=== PATIENT | female | born 1955 | race Caucasian/White ===

== ENCOUNTER 2017-07-02 16:08 | Emergency (ER) | payer OTHER ==
[2017-07-02 16:22] VITALS: BP 129/78; PULSE 74; TEMP 97.3; BMI 26.4
--- NOTE | 2017-07-02 16:25 | PDOC ---
Rapid Medical Evaluation Time Seen by Provider: 07/02/17 16:16 Medical Evaluation: Allergies Allergy/AdvReac Type Severity Reaction Status Date / Time No Known Drug Allergies Allergy Verified 02/06/15 11:50 07/02/17 16:16 The patient presents with a chief complaint of: fell getting out of a car landing on the left knee causing an abrasion and chin/lip. she is c/o minor pain and minor "bleeding" to knee, chin, lip however bleeding is controlled wkith very minor skin abrasion . she is with hx of MR and lives with an aid in a nursing home. I have performed a brief in-person evaluation of this patient; Pertinent physical exam findings: right knee abrasion ambulatory, in no respiratory distress I have ordered the following: none, evaluation only. The patient will proceed to the ED for further evaluation.
--- NOTE | 2017-07-02 16:30 | PDOC ---
History of Present Illness - General Chief Complaint: Injury Stated Complaint: FALL/INJURY Time Seen by Provider: 07/02/17 16:16 History Source: Patient Exam Limitations: Clinical Condition - History of Present Illness Initial Comments: 07/02/17 16:25 Pt had falling getting out of a car falling on her left knee, chin and upper lip without bleeding noted. She has full ROM, no impeded movement due to pain. she is with MR/Downs and limited on subjective assessment. Aid present pt was not witnessed to her fall and came in for evaluation. Occurred: reports: just prior to arrival Severity: reports: mild Past History - Past Medical History Allergies/Adverse Reactions: Allergies Allergy/AdvReac Type Severity Reaction Status Date / Time No Known Drug Allergies Allergy Verified 07/02/17 16:18 Home Medications: Ambulatory Orders Calcium Carbonate/Vitamin D3 [Calcium 600-Vit D3 200 Tablet] 1 each PO BID #0 tablet 11/19/11 Cholecalciferol (Vitamin D3) [Vitamin D] 2,000 unit PO DAILY #0 tablet 11/19/11 Levothyroxine [Synthroid -] 75 mcg PO DAILY #0 tablet 11/19/11 MetroNIDAZOLE [Metronidazole TOP GEL] 45 gm TP DAILY #0 gel 11/19/11 Oxycodone HCl/Acetaminophen [Percocet 5-325 mg Tablet] 1 combo PO Q4H PRN #0 tablet 11/19/11 Polyethylene Glycol 3350 [Miralax] 1 gm PO DAILY #0 powd.pack 11/19/11 Unobtainable 02/06/15 Anemia: No Asthma: No Cancer: No Cardiac Disorders: No CVA: No COPD: No CHF: No Diabetes: No GI Disorders: Yes (IBS) Hypercholesterolemia: No Liver Disease: No Seizures: No Thyroid Disease: Yes - Immunization History Immunization Up to Date: Yes - Suicide/Smoking/Psychosocial Hx Smoking Status: No Smoking History: Never smoked Have you smoked in the past 12 months: No Number of Cigarettes Smoked Daily: 0 Information on smoking cessation initiated: No Hx Alcohol Use: No Drug/Substance Use Hx: No Substance Use Type: None Review of Systems - Review of Systems Able to Perform ROS?: No *Physical Exam - Vital Signs Last Vital Signs Temp Pulse Resp BP Pulse Ox 97.3 F L 74 15 129/78 100 07/02/17 16:18 07/02/17 16:18 07/02/17 16:18 07/02/17 16:18 07/02/17 16:18 - Physical Exam Respiratory/Chest: positive: Lungs Clear Cardiovascular: positive: Regular Rate Gastrointestinal/Abdominal: positive: Flat, Soft Musculoskeletal: positive: Normal Inspection Extremity: positive: Normal Capillary Refill, Normal Inspection, Normal Range of Motion, Other (abrasion to chin, lip, left knee) Integumentary: positive: Normal Color, Dry, Warm Neurologic: positive: Alert, Normal Mood/Affect, Normal Response Medical Decision Making - Medical Decision Making 07/02/17 16:28 Abrasions very minor, areas cleaned and bacitracin applied. No loose teeth noted, no oral injuries noted. Full ROM last tetanus shot according to [facility] 09/30 Areas cleaned and bacitracin applied. *DC/Admit/Observation/Transfer Diagnosis at time of Disposition: Fall Qualifiers: Encounter type: initial encounter Qualified Code(s): W19.XXXA - Unspecified fall, initial encounter - Discharge Dispostion Disposition: HOME Condition at time of disposition: Good Admit: No - Referrals - Patient Instructions Printed Discharge Instructions: DI for Abrasion Additional Instructions: Discharge instruction Keep wounds clean and dry and apply bacitracin to area 2x day. Any signs of infection, return to ED. - Post Discharge Activity
== END 2017-07-02 16:39 | disposition home or self-care (01) ==
LOC: JERFT 16:08
DX: S80.212A Abrasion, left knee, initial encounter (principal); W18.39XA Other fall on same level, initial encounter; Y93.89 Activity, other specified; Y92.9 Unspecified place or not applicable; Q90.9 Down syndrome, unspecified; K58.9 Irritable bowel syndrome, unspecified; E07.9 Disorder of thyroid, unspecified
CPT/HCPCS: 99281-25

== ENCOUNTER 2019-05-13 14:02 | Inpatient (IN) | payer OTHER ==
[2019-05-13 14:20] VITALS: BMI 22.4
[2019-05-13] MEDS ORDERED: LACTATED RINGERS SOLUTION 1000 ML INFUS.BAG IV ONE ×2 (14:26→15:30)
--- NOTE | 2019-05-13 14:27 | PDOC ---
History of Present Illness - General Chief Complaint: Diarrhea Stated Complaint: HYPOTENSIVE Time Seen by Provider: 05/13/19 14:25 History Source: Care Provider Exam Limitations: Clinical Condition - History of Present Illness Initial Comments: 05/13/19 14:26\ HPI 63 YOF with h/o Down's syndrome BIB [facility]-way aid presenting with multiple episodes of diarrhea, decreased appetite/PO intake and fever x 5 days, Tmax 102 today. she was in the bathroom all morning and did not come out due to voluminous diarrhea. went to urgent care [facility], where strep test done, (positive for strep A), and due to hypotension, referred to the ED for further evaluation. no other known sick contacts at [facility] no recent abx use. otherwise has been acting appropriately per aid at bedside. Allergies: None Past Medical History: Down's syndrome PSH: unknown Social history: Lives at [facility]-way. Meds: as documented in EMR Review of systems limited 2/2 clinical condition/Down's syndrome 05/13/19 18:20 Past History - Past Medical History Allergies/Adverse Reactions: Allergies Allergy/AdvReac Type Severity Reaction Status Date / Time No Known Drug Allergies Allergy Verified 07/02/17 16:18 Home Medications: Ambulatory Orders Calcium Carbonate/Vitamin D3 [Calcium 600-Vit D3 200 Tablet] 1 each PO BID #0 tablet 11/19/11 Cholecalciferol (Vitamin D3) [Vitamin D] 2,000 unit PO DAILY #0 tablet 11/19/11 Levothyroxine [Synthroid -] 75 mcg PO DAILY #0 tablet 11/19/11 Polyethylene Glycol 3350 [Miralax] 1 gm PO DAILY #0 powd.pack 11/19/11 Anemia: No Asthma: No Cancer: No Cardiac Disorders: No CVA: No COPD: No CHF: No Diabetes: No GI Disorders: Yes (IBS) Hypercholesterolemia: No Liver Disease: No Seizures: No Thyroid Disease: Yes - Immunization History Immunization Up to Date: Yes - Psycho Social/Smoking Cessation Hx Smoking Status: No Smoking History: Never smoked Have you smoked in the past 12 months: No Number of Cigarettes Smoked Daily: 0 Information on smoking cessation initiated: No Hx Alcohol Use: No Drug/Substance Use Hx: No Substance Use Type: None Review of Systems - Review of Systems Able to Perform ROS?: No (Down's syndrome) *Physical Exam - Vital Signs Last Vital Signs Temp Pulse Resp BP Pulse Ox 98.5 F 106 H 20 88/53 L 96 05/13/19 14:19 05/13/19 14:19 05/13/19 14:19 05/13/19 14:19 05/13/19 14:19 - Physical Exam 05/16/19 09:38 General: NAD. nonverbal HEENT: NCAT, PERRL, EOMI, clear conjunctiva, anicteric, dry mucus membranes, clear oropharynx, no oral lesions.. Neck: neck supple, FROM Resp: CTAB, normal and even respirations, no respiratory distress CVS: +tachycardic, no murmurs, 2+ peripheral pulses throughout, no peripheral edema Abdomen: soft, +diffusely tender. no rebound or guarding. no CVAT. Back: nontender, normal inspection and ROM MSK: no edema, KANG x4, ROM intact. No clubbing or cyanosis. normal bulk and tone. Neuro: alert, nonverbal. Psych: easily agitated. Skin: warm and well perfused, cap refill <2 sec, normal color no rash or lesions ED Treatment Course - LABORATORY CBC & Chemistry Diagram: 05/16/19 07:50 05/16/19 07:50 Medical Decision Making - Medical Decision Making 05/13/19 14:26 Vital Signs Temp Pulse Resp BP Pulse Ox 98.5 F 106 H 20 88/53 L 96 05/13/19 14:19 05/13/19 14:19 05/13/19 14:19 05/13/19 14:19 05/13/19 14:19 VS no fever, +hypotensive and tachycardia likely from infection/dehydration. DDx abdominal pain: Renal colic, biliary colic, metabolic/electrolyte derangements. GERD, PUD, esophageal spasm, pancreatitis, hepatitis, constipation , colitis, gastroenteritis, cholecystitis, UTI, pyelonephritis, ileus, SBO, medication side effect, hernia, appendicitis, diverticulitis, mesenteric ischemia. msk strain, mesenteric adenitis, psoas abscess. no e/o GIB. no risk factors to suggest C diff colitis, as pt not received recent abx will send stool cultures, could be community acquired colitis, eval for bacterial infection Patient required Haldol for her agitation,, 2 L of LR hydration, low-dose Versed to help her tolerate the CT scan Laboratory results significant for leukocytosis of 18 point 2K, normal H&H, nonsignificant differential, electrolytes and creatinine is normal, lipase also negative LFTs also normal so unlikely be hepatitis/pancreatitis of note, facility/[facility]-way called with +strep A from urgent care, rx of amoxicillin was sent will repeat strep here, treat with bicillin IM x 1 time dose for treatment. CT a/p indicated with diarrhea, fever and AP. with unreliable physical exam due to Down's syndrome/clinical condition. plan admit for diarrheal illness, hypotension, dehydration, febrile illness. medical management, hydration, supportive care. 05/16/19 09:39 Discharge - Discharge Information Problems reviewed: Yes Clinical Impression/Diagnosis: Dehydration, Strep pharyngitis, Acute colitis Hypotension Qualifiers: Hypotension type: unspecified hypotension type Qualified Code(s): I95.9 - Hypotension, unspecified Diarrhea Qualifiers: Diarrhea type: unspecified type Qualified Code(s): R19.7 - Diarrhea, unspecified Condition: Guarded - Admission Yes - Follow up/Referral - Patient Discharge Instructions - Post Discharge Activity
[2019-05-13 15:09] LABS: BASO % 0.8 % (0-2.0); EOS % 0.1 % (0-4.5); HEMATOCRIT 39.6 % (32.4-45.2); HEMOGLOBIN 13.3 GM/dL (10.7-15.3); LYMPH % 11.2 % (8-40); MCH 31.6 pg (25.7-33.7); MCHC 33.7 g/dl (32.0-36.0); MEAN CELL VOLUME 93.7 fl (80-96); MEAN PLT VOLUME 7.8 fl (7.5-11.1); MONO % 8.3 % (3.8-10.2); NEUT % 79.6 % (42.8-82.8); PLATELET COUNT 471 K/MM3 (134-434); RBC 4.22 M/mm3 (3.60-5.2); RDW 14.8 % (11.6-15.6); WHITE BLOOD COUNT 18.2 K/mm3 (4.0-10.0)
[2019-05-13 15:12] LABS: ALBUMIN 2.8 g/dl (3.4-5.0); BILIRUBIN,TOTAL 0.2 mg/dL (0.2-1); CALCIUM 8.7 mg/dL (8.5-10.1); POTASSIUM 4.9 mmol/L (3.5-5.1); TOT PROT 6.6 g/dl (6.4-8.2)
[2019-05-13] MEDS ORDERED: MIDAZOLAM HCL 2 MG/2 ML SINGLE DOSE VIAL IVPUSH ONE ×2 (15:25→18:39)
[2019-05-13] MEDS ORDERED: HALOPERIDOL LACTATE 5 MG/ML IM ONE ×2 (15:30→16:17)
[2019-05-13] MEDS ORDERED: HALOPERIDOL LACTATE 5 MG/ML ONE ×2 (15:32→16:50)
[2019-05-13] MEDS ORDERED: MIDAZOLAM HCL 2 MG/2 ML SINGLE DOSE VIAL ONE (18:39)
[2019-05-13] MEDS ORDERED: PENICILLIN G BENZATHINE 1,200,000 UNIT/2 ML PFS IM ONE ×2 (18:53→19:29)
[2019-05-13] MEDS ORDERED: LACTATED RINGERS SOLUTION 1,000 ML/1,000 ML INFUS.BAG IV SCH (20:15)
[2019-05-13] MEDS ORDERED: CIPROFLOXACIN 400 MG/D5W 400 MG/200 ML IVPB IVPB ONE ×2 (20:24→21:45)
--- NOTE | 2019-05-13 20:27 | PDOC ---
*Physical Exam - Vital Signs Last Vital Signs Temp Pulse Resp BP Pulse Ox 98 F 72 19 81/76 L 99 05/13/19 15:38 05/13/19 15:38 05/13/19 15:38 05/13/19 15:38 05/13/19 15:38 ED Treatment Course - LABORATORY CBC & Chemistry Diagram: 05/13/19 14:33 05/13/19 14:33 - ADDITIONAL ORDERS Additional order review: Laboratory Results 05/13/19 05/13/19 05/13/19 15:30 14:33 14:33 Sodium 141 Potassium 4.9 Chloride 108 H Carbon Dioxide 28 Anion Gap 5 L BUN 10.0 Creatinine 1.0 Est GFR (CKD-EPI)AfAm 70.42 Est GFR (CKD-EPI)NonAf 60.76 Random Glucose 90 Lactic Acid 1.4 Calcium 8.7 Total Bilirubin 0.2 AST 21 ALT 18 Alkaline Phosphatase 59 Total Protein 6.6 Albumin 2.8 L Lipase 43 L 05/13/19 14:33 RBC 4.22 MCV 93.7 MCHC 33.7 RDW 14.8 MPV 7.8 Neutrophils % 79.6 D Lymphocytes % 11.2 D Monocytes % 8.3 Eosinophils % 0.1 D Basophils % 0.8 - Medications Given in the ED: ED Medications Discontinued Medications Generic Name Dose Route Start Last Admin Trade Name Linn PRN Reason Stop Dose Admin Diphenhydramine HCl 25 mg 05/13/19 16:57 05/13/19 17:13 Benadryl Injection - IVPUSH 05/13/19 16:58 25 mg ONCE ONE Administration Haloperidol 5 mg 05/13/19 15:30 05/13/19 15:46 Haldol Injection (Fast Acting) - IM 05/13/19 15:31 5 mg ONCE ONE Administration Haloperidol 5 mg 05/13/19 16:17 05/13/19 16:58 Haldol Injection (Fast Acting) - IM 05/13/19 16:18 5 mg ONCE ONE Administration Lactated Ringer's 1,000 ml 05/13/19 14:26 05/13/19 14:40 Lactated Ringers Solution IV 05/13/19 14:27 1,000 ml ONCE ONE Administration Lactated Ringer's 1,000 ml 05/13/19 15:30 05/13/19 15:46 Lactated Ringers Solution IV 05/13/19 15:31 1,000 ml ONCE ONE Administration Midazolam HCl 2 mg 05/13/19 15:25 05/13/19 17:05 Versed - IVPUSH 05/13/19 15:26 Not Given ONCE ONE Midazolam HCl 2 mg 05/13/19 18:39 05/13/19 18:48 Versed - IVPUSH 05/13/19 18:40 2 mg ONCE ONE Administration Penicillin G Benzathine 1,200,000 unit 05/13/19 18:53 05/13/19 20:17 Bicillin L-A - IM 05/13/19 18:54 1,200,000 unit ONCE ONE Administration Medical Decision Making - Medical Decision Making Patient signed out to Dr. Rosario pending CTAP results and ED disposition CT: Basically shows rutledge-colitis - NPO - IV hydration - Cipro/flagyl - Coags - Surgery consult - Med/Surg Dispo: Med/surg - spoke with admitting resident and gave report Discharge - Discharge Information Problems reviewed: Yes Clinical Impression/Diagnosis: Dehydration, Strep pharyngitis Hypotension Qualifiers: Hypotension type: unspecified hypotension type Qualified Code(s): I95.9 - Hypotension, unspecified Diarrhea Qualifiers: Diarrhea type: unspecified type Qualified Code(s): R19.7 - Diarrhea, unspecified Condition: Guarded - Admission Yes - Follow up/Referral - Patient Discharge Instructions - Post Discharge Activity
[2019-05-13 21:54] LABS: INR 1.07 (0.83-1.09); PROTHROMBIN TIME (PATIENT) 12.6 SEC (9.7-13.0)
--- NOTE | 2019-05-13 21:54 | PN ---
Teaching Attending Note Name of Resident: Adam Montez ATTENDING PHYSICIAN STATEMENT I saw and evaluated the patient. I reviewed the resident's note and discussed the case with the resident. I agree with the resident's findings and plan as documented. SUBJECTIVE: 63 year old female With Down's syndrome, osteoporosis, and hypothyroidism, Lives in a fdc, brought in after developing diarrhea x2 days with multiple bowel movements, decreased appetite and p.o. intake and fever up to 102 Fahrenheit. Was seen in urgent care just prior to presentation to ER and allegedly was diagnosed with strep throat although here in emergency room here in the hospital her rapid strep test was negative. No history of inflammatory bowel disease, recent travels, sick contacts. OBJECTIVE: Last Vital Signs Temp Pulse Resp BP Pulse Ox 98 F 89 19 96/46 L 99 05/13/19 15:38 05/13/19 22:54 05/13/19 22:54 05/13/19 22:54 05/13/19 22:54 GENERAL: Apparent Down syndrome phenotype HEENT: Normocephalic, atraumatic. PERRLA, EOMI. No conjunctival pallor. Sclera are non- icteric. Moist mucous membranes. NECK: Supple. Full ROM. No JVD. Carotid pulses 2+ and symmetric, without bruits. No thyromegaly. No lymphadenopathy. CARDIOVASCULAR: Regular rate and rhythm. No murmurs, rubs, or gallops. Distal pulses are 2+ and symmetric. PULMONARY: No evidence of respiratory distress. Lungs clear to auscultation bilaterally. No wheezing, rales or rhonchi. ABDOMINAL: Soft. Non-tender. Non-distended. No rebound or guarding. No organomegaly. Normoactive bowel sounds. MUSCULOSKELETAL Normal range of motion at all joints. No bony deformities or tenderness. No CVA tenderness. EXTREMITIES: No cyanosis. No clubbing. No edema. No calf tenderness. SKIN: Warm and dry. Normal capillary refill. No rashes. No jaundice. NEUROLOGICAL: Down syndrome PSYCHIATRIC: Uncooperative, aggressive Abnormal Lab Results 05/13/19 05/13/19 05/13/19 14:33 14:33 14:33 WBC 18.2 H Plt Count 471 H D Absolute Neuts (auto) 14.5 H Chloride 108 H Anion Gap 5 L Albumin 2.8 L [address] of abdomen and pelvis with IV contrast was performed and report was appreciated. Acute pancolitis was noted. There was possible involvement of terminal ileum. Several nonspecific splenic hypodense lesions were seen which appeared to be solid in nature. Diffuse urinary bladder wall thickening may be due to underdistention versus acute or chronic cystitis. ASSESSMENT AND PLAN: 63-year-old female with history of Down syndrome presenting with pancolitis visible on CT of abdomen pelvis, severe leukocytosis, bloody stools, with reported fever concerning for possible infectious etiology. Differential diagnosis includes malignancy, inflammatory bowel disease. Moderate suspicion for possible C. difficile colitis at this time would place patient in contact isolation until C. difficile colitis is ruled out. Ceftriaxone 1 g IV every 24 hours Metronidazole 500 mg IV every 8 hours Stool for C. difficile toxin PCR, stool culture, stool WBC, ova and parasites IV fluid hydration Stool for fecal occult blood Patient refused digital rectal exam Consider GI evaluation for possible colonoscopy #Thrombocytosislikely reactive secondary to inflammatory colitis Trend CBC and monitor platelets closely #Hypothyroidism Send TSH Continue with home dose levothyroxine 75 mcg p.o. daily DVT prophylaxis with heparin subcutaneously
--- NOTE | 2019-05-13 22:05 | HP ---
CHIEF COMPLAINT: PCP: HISTORY OF PRESENT ILLNESS: This is a 63 year old female, PMH significant for Down's syndrome, osteoporosis , and hypothyroidism. She was brought to the ER from her assisted with complaints of diarrhea and abdominal pain since yesterday. Health aide was present at bedside to provide a history. She states that the patient was in her usual state of health until yesterday evening, when she began to complain of abdominal pain. She then developed diarrhea, an had 4 episodes described as brown in color, pasty in texture, and without blood. Today she has had several episodes of diarrhea (Aide was unable to quantify), brown in color, liquid in consistency, and with some scant dark blood mixed with the stool, and fresh blood noticed on the toilet paper after wiping. She also states that the patient was warm to the touch. Temperature was measured at the nurse home and found to be 102 on one instance, with repeat measurements fluctuating between 99 -102. She was given Tylenol, and was then taken to an urgent care clinic, where she was tested positive for Strep A, and referred to the ER. She denies any nausea, vomiting, chest pain, cough, dizziness, AMS, visual changes, dysuria, hematuria, or polyuria. She has taken no new meds, no sick contacts, and no recent travel. ER course was notable for: (1) WBC 18.2 (2) CT AP Pancolitis, acute/chronic cystitis, cholestasis and hepatic steatosis (3) Strep A positive, Penicillin given 1g (4) Metronidazole 500mg with 1L LR Recent Travel: Denies PAST MEDICAL HISTORY: Down's syndrome, osteoporosis, and hypothyroidism PAST SURGICAL HISTORY: None Social History: Smoking: Denies Alcohol: Denies Drugs: Denies Allergies No Known Drug Allergies Allergy (Verified 07/02/17 16:18) HOME MEDICATIONS: Home Medications Medication Instructions Recorded Calcium Carbonate/Vitamin D3 1 each PO BID #0 tablet 11/19/11 [Calcium 600-Vit D3 200 Tablet] Cholecalciferol (Vitamin D3) 2,000 unit PO DAILY #0 tablet 11/19/11 [Vitamin D] Levothyroxine [Synthroid -] 75 mcg PO DAILY #0 tablet 11/19/11 MetroNIDAZOLE [Metronidazole TOP 45 gm TP DAILY #0 gel 11/19/11 GEL] Oxycodone HCl/Acetaminophen 1 combo PO Q4H PRN #0 tablet 11/19/11 [Percocet 5-325 mg Tablet] Polyethylene Glycol 3350 [Miralax] 1 gm PO DAILY #0 powd.pack 11/19/11 REVIEW OF SYSTEMS CONSTITUTIONAL: Absent: fever, chills, diaphoresis, generalized weakness, malaise, loss of appetite, weight change HEENT: Absent: rhinorrhea, nasal congestion, throat pain, throat swelling, difficulty swallowing, mouth swelling, ear pain, eye pain, visual changes CARDIOVASCULAR: Absent: chest pain, syncope, palpitations, irregular heart rate, lightheadedness , peripheral edema RESPIRATORY: Absent: cough, shortness of breath, dyspnea with exertion, orthopnea, wheezing, stridor, hemoptysis GASTROINTESTINAL: diarrhea Absent: abdominal pain, abdominal distension, nausea, vomiting, diarrhea, constipation, melena, hematochezia GENITOURINARY: Absent: dysuria, frequency, urgency, hesitancy, hematuria, flank pain, genital pain MUSCULOSKELETAL: Absent: myalgia, arthralgia, joint swelling, back pain, neck pain SKIN: Absent: rash, itching, pallor HEMATOLOGIC/IMMUNOLOGIC: Absent: easy bleeding, easy bruising, lymphadenopathy, frequent infections ENDOCRINE: Absent: unexplained weight gain, unexplained weight loss, heat intolerance, cold intolerance NEUROLOGIC: Absent: headache, focal weakness or paresthesias, dizziness, unsteady gait, seizure, mental status changes, bladder or bowel incontinence PSYCHIATRIC: Absent: anxiety, depression, suicidal or homicidal ideation, hallucinations. PHYSICAL EXAMINATION Vital Signs - 24 hr 05/13/19 05/13/19 05/13/19 14:19 15:38 18:13 Temperature 98.5 F 98 F Pulse Rate 106 H Pulse Rate [ 72 88 Right Radial] Respiratory 20 19 19 Rate Blood Pressure 88/53 L Blood Pressure 81/76 L 86/79 L [Left Arm] O2 Sat by Pulse 96 99 91 L Oximetry (%) GENERAL: Lying comfortably in bed, becomes extremely agitated when spoken to or touched HEAD: Normal with no signs of trauma. EYES: Pupils equal, round and reactive to light, extraocular movements intact, sclera anicteric, conjunctiva clear. No lid lag. EARS, NOSE, THROAT: No lesions on tongue, unable to visualize pharynx due to limited patient cooperation LUNGS: Breath sounds equal, clear to auscultation bilaterally. No wheezes, and no crackles. No accessory muscle use. HEART: Regular rate and rhythm, normal S1 and S2 without murmur, rub or gallop. ABDOMEN: Soft, nontender, not distended, hyperactive LLQ bowel sounds, absent elsewhere, no guarding, no rebound, no masses. No hepatomegaly or splenomegaly. Digital rectal exam attempted, patient became extremely agitated and began thrashing, attempted again a few hours later, patient again became agitated and began to decompensate LOWER EXTREMITIES: 2+ pulses, warm, well-perfused. No calf tenderness. No peripheral edema. NEUROLOGICAL: Patient non compliant with exam, but noticed to be moving all 4 limbs PSYCHIATRIC: Distress SKIN: Warm, dry, normal turgor, no rashes or lesions noted, normal capillary refill. Laboratory Results - last 24 hr 05/13/19 05/13/19 05/13/19 14:33 14:33 14:33 WBC 18.2 H RBC 4.22 Hgb 13.3 Hct 39.6 MCV 93.7 MCH 31.6 MCHC 33.7 RDW 14.8 Plt Count 471 H D MPV 7.8 Absolute Neuts (auto) 14.5 H Neutrophils % 79.6 D Lymphocytes % 11.2 D Monocytes % 8.3 Eosinophils % 0.1 D Basophils % 0.8 Nucleated RBC % 0 Sodium 141 Potassium 4.9 Chloride 108 H Carbon Dioxide 28 Anion Gap 5 L BUN 10.0 Creatinine 1.0 Est GFR (CKD-EPI)AfAm 70.42 Est GFR (CKD-EPI)NonAf 60.76 Random Glucose 90 Lactic Acid Calcium 8.7 Total Bilirubin 0.2 AST 21 ALT 18 Alkaline Phosphatase 59 Total Protein 6.6 Albumin 2.8 L Lipase 43 L Influenza A (Rapid) Influenza B (Rapid) Group A Strep Rapid 05/13/19 05/13/19 05/13/19 15:30 20:13 20:13 WBC RBC Hgb Hct MCV MCH MCHC RDW Plt Count MPV Absolute Neuts (auto) Neutrophils % Lymphocytes % Monocytes % Eosinophils % Basophils % Nucleated RBC % Sodium Potassium Chloride Carbon Dioxide Anion Gap BUN Creatinine Est GFR (CKD-EPI)AfAm Est GFR (CKD-EPI)NonAf Random Glucose Lactic Acid 1.4 Calcium Total Bilirubin AST ALT Alkaline Phosphatase Total Protein Albumin Lipase Influenza A (Rapid) Negative Influenza B (Rapid) Negative Group A Strep Rapid Negative ASSESSMENT/PLAN: 63F with PMH significant for Down's syndrome, osteoporosis, and hypothyroidism. She was brought to the ER from her assisted with complaints of diarrhea and abdominal pain since yesterday. She was found to have pancolitis on CT and was admitted for further management. #Pancolitis - CT AP Pancolitis, acute/chronic cystitis, cholestasis and hepatic steatosis - WBC 18.2 with left shift, likely 2/2 pancolitis - There are indications for emperic rx: >6 episodes of diarrhea in 24H, and 1 or more episode of bloody diarrhea - Will start on Ceftriaxone 1g daily, Metro 500mg Q8, given Cipro 400mg in ER however will not continue due to increased incidence of resistance - Blood cx, Stool cx, leukocyte, Cdiff, Shiga toxin - FOBT + - GI consult placed to r/o IBD, (increased incidence of UC in Down's patients) - Isolation orders placed #Hypothyroidism - Continue home levothyroxine once confirmed - TSH ordered #Strep A pharyngitis - Tested positive at urgent care, tested negative in ER - Given 1gm Penicillin IM in ER #Cholestasis/Hepatic steatosis - Found on CT AP, patient asymptomatic with benign physical exam as well as normal bili and LFTs on exam - Will continue to monitor #Cystitis - As evidenced on CT, patient asymptomatic - UA pending - UCx ordered #Thrombocytosis - May be reactive due to sepsis, will continue to monitor #FEN - LR @ 125 - Will monitor for electrolyte imbalance due to volume loss - NPO for now #DVT - SCDs for now until bleeding can be r/o Visit type - Emergency Visit Emergency Visit: Yes ED Registration Date: 05/13/19 Care time: The patient presented to the Emergency Department on the above date and was hospitalized for further evaluation of their emergent condition. - New Patient This patient is new to me today: Yes Date on this admission: 05/14/19 - Critical Care Critical Care patient: No ATTENDING PHYSICIAN STATEMENT I saw and evaluated the patient. I reviewed the resident's note and discussed the case with the resident. I agree with the resident's findings and plan as documented. SUBJECTIVE: OBJECTIVE: ASSESSMENT AND PLAN:
[2019-05-14] MEDS ORDERED: MIDAZOLAM HCL 2 MG/2 ML SINGLE DOSE VIAL IVPUSH ONE (03:57)
[2019-05-14] MEDS ORDERED: ACETAMINOPHEN 1000 MG/100 ML VIAL (NON FORMULARY) IVPB ONE (06:23)
[2019-05-14 08:50] LABS: BASO % 0.5 % (0-2.0); EOS % 0.8 % (0-4.5); HEMATOCRIT 32.7 % (32.4-45.2); HEMOGLOBIN 11.1 GM/dL (10.7-15.3); LYMPH % 11.4 % (8-40); MCH 31.5 pg (25.7-33.7); MCHC 33.8 g/dl (32.0-36.0); MEAN CELL VOLUME 93.1 fl (80-96); MEAN PLT VOLUME 7.4 fl (7.5-11.1); MONO % 9.8 % (3.8-10.2); NEUT % 77.5 % (42.8-82.8); PLATELET COUNT 402 K/MM3 (134-434); RBC 3.51 M/mm3 (3.60-5.2); RDW 14.7 % (11.6-15.6); WHITE BLOOD COUNT 12.5 K/mm3 (4.0-10.0)
[2019-05-14] MEDS: SODIUM CHLORIDE 1,000 ML IV SCH ×2 (09:09→16:35)
[2019-05-14 09:16] LABS: ALBUMIN 2.2 g/dl (3.4-5.0); BILIRUBIN,TOTAL 0.2 mg/dL (0.2-1); BLOOD UREA NITROGEN 4.5 mg/dL (7-18); CALCIUM 7.3 mg/dL (8.5-10.1); CREATININE 0.6 mg/dL (0.55-1.3); POTASSIUM 3.9 mmol/L (3.5-5.1)
--- NOTE | 2019-05-14 11:02 | CON.GI ---
Consult Consult Specialty:: GI Referred by:: Hospitalist Service Reason for Consultation:: Colitis - History of Present Illness Chief Complaint: Patient denies any focal complaints currently. Diarrhea and abdominal pain per the H&P. History of Present Illness: 63F admitted from [place] for evaluation of abdominal pain and diarrhea from yesterday. Patient cannot give history. She denies any focal complaints. Diarrhea per H&P was described as brown and there was description of blood mix as well. Fevers described from [place] to 102. Being treated for strep. CT scan revealed pancolitis, splenic lesions, question of cystitis, fatty liver and gallstones. 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[employer]: Yes: Other (Down's Syndrome) Endocrine: Yes: Hypothyroidism - Past Surgical History Additional Surgical History: Has a RUQ scar of unclear etiology - Alcohol/Substance Use Hx Alcohol Use: No History of Substance Use: reports: None - Smoking History Smoking history: Never smoked Have you smoked in the past 12 months: No Aproximately how many cigarettes per day: 0 - Social History Usual Living Arrangement: Penitentiary ADL: Support Services Place of : [facility] History of Recent Travel: No Home Medications - Allergies Allergies/Adverse Reactions: Allergies Allergy/AdvReac Type Severity Reaction Status Date / Time No Known Drug Allergies Allergy Verified 07/02/17 16:18 - Home Medications Home Medications: Ambulatory Orders Calcium Carbonate/Vitamin D3 [Calcium 600-Vit D3 200 Tablet] 1 each PO BID #0 tablet 11/19/11 Cholecalciferol (Vitamin D3) [Vitamin D] 2,000 unit PO DAILY #0 tablet 11/19/11 Levothyroxine [Synthroid -] 75 mcg PO DAILY #0 tablet 11/19/11 Polyethylene Glycol 3350 [Miralax] 1 gm PO DAILY #0 powd.pack 11/19/11 Family Medical History Family History: Unable to Obtain Review of Systems Unable to obtain ROS, reason: pt. does not give hx Physical Exam-GI Vital Signs: Vital Signs Temperature 97.9 F 05/14/19 09:00 Pulse Rate 96 H 05/14/19 09:00 Respiratory Rate 18 05/14/19 09:00 Blood Pressure 101/59 L 05/14/19 09:00 O2 Sat by Pulse Oximetry (%) 98 05/14/19 02:55 Constitutional: Yes: Calm Eyes: No: Sclera Icterus Cardiovascular: Yes: Regular Rate and Rhythm. No: Murmur Respiratory: Yes: Diminished (at bases bilaterally with poor insp. effort) Gastrointestinal Inspection: No: Distention ...Auscultate: Yes: Normoactive Bowel Sounds ...Palpate: Yes: Soft. No: Hepatomegaly, Splenomegaly, Tenderness (no grimacing upon palpation, denies TTP) ...Percussion: No: Tympanitic ...Rectal Exam: Yes: Other (Patient would not cooperate with exam) Edema: No (No LE edema) Neurological: Yes: Alert Labs: CBC, BMP 05/14/19 08:04 05/14/19 08:04 INR, PTT INR 1.07 (0.83-1.09) 05/13/19 21:06 Problem List - Problems (1) Colitis Assessment/Plan: Clinically appears well and non toxic. No tenderness on exam. Given that Brianna lives in a nursing facility and has pancolitis, She should be treated emprically for C. Diff until excluded. Ordered PO vancocin 125mg PO q 6 hours. Stool culture, O&P Advanced diet to full liquids ID evaluation IV hydration Will follow Code(s): K52.9 - NONINFECTIVE GASTROENTERITIS AND COLITIS, UNSPECIFIED
[2019-05-14] MEDS ORDERED: cefTRIAXone SODIUM 1 GM VIAL ONE (11:16)
[2019-05-14] MEDS ORDERED: DEXTROSE 5%-WATER - 50 ML IVPB ONE (11:16)
[2019-05-14] MEDS: VANCOMYCIN 250 MG/5 ML ORAL SOLUTION PO SCH ×2 (11:48→17:18)
[2019-05-14] MEDS: CEFTRIAXONE 1 GM in DEXTROSE 5%-WATER - 50 ML IVPB SCH ×2 (11:48→13:21)
--- NOTE | 2019-05-14 14:18 | PN ---
Physical Exam: SUBJECTIVE: Patient seen and examined at bedside. Overnight she required soft restraints and regular orientation for agitation. This AM she denies any pain. OBJECTIVE: Vital Signs Temp Pulse Resp BP Pulse Ox 98.5 F 96 H 18 113/58 L 95 05/14/19 18:00 05/14/19 18:00 05/14/19 18:00 05/14/19 18:00 05/14/19 10:00 GENERAL: AOx1 to self, in no acute distress. HEAD: NCAT EYES: Epicanthic eyefold, TRACI, EOMI, conjunctiva clear. ENT: Ears normal, nares patent, oropharynx clear without exudates. Moist mucous membranes. NECK: Normal range of motion, supple without lymphadenopathy, JVD, or masses. LUNGS: CTAB. No wheezes, and no crackles. No accessory muscle use. HEART: RRR s1 s2, 3/6 systolic murmur left sternal border ABDOMEN: Soft, BS present in all 4 quadrants, non-distended, no JVD, MUSCULOSKELETAL: No bony deformities or tenderness. No CVA tenderness. UPPER EXTREMITIES: 2+ pulses, warm, well-perfused. No cyanosis. No clubbing. No peripheral edema. LOWER EXTREMITIES: 2+ pulses, warm, well-perfused. No calf tenderness. No peripheral edema. NEUROLOGICAL: No focal deficits. Cranial nerves II-XII intact. Normal speech. Gait not appreciated. PSYCHIATRIC: Cooperative. Good eye contact. Appropriate mood and affect. SKIN: Warm, dry, normal turgor, no rashes or lesions noted, normal capillary refill. Laboratory Results - last 24 hr 05/13/19 05/13/19 05/13/19 14:33 14:33 14:33 WBC 18.2 H RBC 4.22 Hgb 13.3 Hct 39.6 MCV 93.7 MCH 31.6 MCHC 33.7 RDW 14.8 Plt Count 471 H D MPV 7.8 Absolute Neuts (auto) 14.5 H Neutrophils % 79.6 D Lymphocytes % 11.2 D Monocytes % 8.3 Eosinophils % 0.1 D Basophils % 0.8 Nucleated RBC % 0 PT with INR INR PTT (Actin FS) Sodium 141 Potassium 4.9 Chloride 108 H Carbon Dioxide 28 Anion Gap 5 L BUN 10.0 Creatinine 1.0 Est GFR (CKD-EPI)AfAm 70.42 Est GFR (CKD-EPI)NonAf 60.76 Random Glucose 90 Lactic Acid Calcium 8.7 Total Bilirubin 0.2 AST 21 ALT 18 Alkaline Phosphatase 59 Total Protein 6.6 Albumin 2.8 L Lipase 43 L TSH Stool Occult Blood Influenza A (Rapid) Influenza B (Rapid) Group A Strep Rapid Blood Type Antibody Screen 05/13/19 05/13/19 05/13/19 15:30 20:13 20:13 WBC RBC Hgb Hct MCV MCH MCHC RDW Plt Count MPV Absolute Neuts (auto) Neutrophils % Lymphocytes % Monocytes % Eosinophils % Basophils % Nucleated RBC % PT with INR INR PTT (Actin FS) Sodium Potassium Chloride Carbon Dioxide Anion Gap BUN Creatinine Est GFR (CKD-EPI)AfAm Est GFR (CKD-EPI)NonAf Random Glucose Lactic Acid 1.4 Calcium Total Bilirubin AST ALT Alkaline Phosphatase Total Protein Albumin Lipase TSH Stool Occult Blood Influenza A (Rapid) Negative Influenza B (Rapid) Negative Group A Strep Rapid Negative Blood Type Antibody Screen 05/13/19 05/13/19 05/13/19 21:06 21:06 22:46 WBC RBC Hgb Hct MCV MCH MCHC RDW Plt Count MPV Absolute Neuts (auto) Neutrophils % Lymphocytes % Monocytes % Eosinophils % Basophils % Nucleated RBC % PT with INR 12.60 INR 1.07 PTT (Actin FS) 26.0 32.3 Sodium Potassium Chloride Carbon Dioxide Anion Gap BUN Creatinine Est GFR (CKD-EPI)AfAm Est GFR (CKD-EPI)NonAf Random Glucose Lactic Acid Calcium Total Bilirubin AST ALT Alkaline Phosphatase Total Protein Albumin Lipase TSH Stool Occult Blood Influenza A (Rapid) Influenza B (Rapid) Group A Strep Rapid Blood Type Cancelled Antibody Screen Cancelled 05/13/19 05/14/19 05/14/19 22:46 04:30 08:04 WBC 12.5 H RBC 3.51 L Hgb 11.1 Hct 32.7 D MCV 93.1 MCH 31.5 MCHC 33.8 RDW 14.7 Plt Count 402 MPV 7.4 L Absolute Neuts (auto) 9.7 H Neutrophils % 77.5 Lymphocytes % 11.4 Monocytes % 9.8 Eosinophils % 0.8 D Basophils % 0.5 Nucleated RBC % 0 PT with INR INR PTT (Actin FS) Sodium Potassium Chloride Carbon Dioxide Anion Gap BUN Creatinine Est GFR (CKD-EPI)AfAm Est GFR (CKD-EPI)NonAf Random Glucose Lactic Acid Calcium Total Bilirubin AST ALT Alkaline Phosphatase Total Protein Albumin Lipase TSH Stool Occult Blood Positive Influenza A (Rapid) Influenza B (Rapid) Group A Strep Rapid Blood Type B POSITIVE Antibody Screen Negative 05/14/19 08:04 WBC RBC Hgb Hct MCV MCH MCHC RDW Plt Count MPV Absolute Neuts (auto) Neutrophils % Lymphocytes % Monocytes % Eosinophils % Basophils % Nucleated RBC % PT with INR INR PTT (Actin FS) Sodium 139 Potassium 3.9 Chloride 107 Carbon Dioxide 23 Anion Gap 9 BUN 4.5 L Creatinine 0.6 Est GFR (CKD-EPI)AfAm 114.02 Est GFR (CKD-EPI)NonAf 98.38 Random Glucose 82 Lactic Acid Calcium 7.3 L Total Bilirubin 0.2 AST 27 ALT 15 Alkaline Phosphatase 43 L Total Protein 5.0 L Albumin 2.2 L Lipase TSH 3.42 Stool Occult Blood Influenza A (Rapid) Influenza B (Rapid) Group A Strep Rapid Blood Type Antibody Screen Active Medications Ceftriaxone Sodium 1 gm/ (Dextrose) 50 mls @ 100 mls/hr IVPB DAILY MARY; Protocol Last Admin: 05/14/19 13:21 Dose: 100 mls/hr Metronidazole (Flagyl 500mg Premixed Ivpb -) 500 mg in 100 mls @ 100 mls/hr IVPB Q8H-IV MARY Last Admin: 05/15/19 01:04 Dose: 100 mls/hr Sodium Chloride (Normal Saline -) 1,000 mls @ 125 mls/hr IV ASDIR MARY Last Admin: 05/15/19 07:06 Dose: Not Given Vancomycin HCl (Vancomycin Oral Solution) 125 mg PO Q6HPO MARY Last Admin: 05/15/19 07:05 Dose: 125 mg ASSESSMENT/PLAN: 63 y/o female PMH Down's Syndrome, osteoporosis, and hypothyroidism c/o bloody diarrhea with ambulatory + step test, pancolitis on CT, admitted for care of poss. infectious causes. # Sepsis 2/2 pancolitis - + strep test, + CT, + FOBT - From SNF, consider c diff - For strep: ceftriaxone 1 gm IV qd and metronidazole 500 mg IV q8h - For poss c diff: vancomycin 125 mg q6h # Hypothyroidism - Aid from SNF brining ambulatory med list today and will reconcile accordingly # F/E/N - NS - Cont. to monitor - Full liquid diet # DVT prophylaxis - scd/regular ambulation # Disposition - Admit to med/surg Iggy Taylor MD Visit type - Emergency Visit Emergency Visit: No - New Patient This patient is new to me today: Yes Date on this admission: 05/15/19 - Critical Care Critical Care patient: No ATTENDING PHYSICIAN STATEMENT I saw and evaluated the patient. I reviewed the resident's note and discussed the case with the resident. I agree with the resident's findings and plan as documented. SUBJECTIVE: OBJECTIVE: ASSESSMENT AND PLAN:
[2019-05-14 14:25] LABS: ANISOCYTOSIS 1+; MACROCYTOSIS 0; OVALOCYTE 1+; PLATELET ESTIMATE NORMAL; TARGET CELLS 1+
--- NOTE | 2019-05-14 16:52 | PN ---
Teaching Attending Note Name of Resident: Iggy Taylor ATTENDING PHYSICIAN STATEMENT I saw and evaluated the patient. I reviewed the resident's note and discussed the case with the resident. I agree with the resident's findings and plan as documented. SUBJECTIVE: not able to obtain hx " I am fine " OBJECTIVE: NAD, awake, not cooperative CV: RRR, 3/6 Sm at LLSB Abd: she did not allow exam. Lungs: She did not allow exam legs , no edema on LE ASSESSMENT AND PLAN: 63 y/o lady with h/o Down's syndrome, osteoporosis and hypothyroidism who presented with Abd pain and diarrhea, she tested positive for strep in urgent care. 1- Sepsis from Pancolitis : r.o infectious causes, especially c diff - cont ceftriaxone and flagyl - cont po vanco empirically for c diff. - cont IVF - cont full liquid diet - rectal bleed from colitis: monitor HB 2- Reported + rapid strep test from urgent care. rapid here is neg ( ? false Neg ). not sure if the patient is a carrier or a true infection - she is on Ceftriaxone now, which will cover any strep infection - throat cx was sent before any Abx were given - if throat cx is +, will treat for a full course of 10 days. 3- h/o hypothyroidism: the aid will bring all her meds from facility 4- Hepatic steatosis 5- Hypodense lesions in spleen: f/u as out pt with GI. DVT PX: add SCds in setting of rectal bleed
[2019-05-14 17:21] LABS: EPI CELLS 1.8 /HPF (0-5/HPF); HYALINE CASTS 0 /lpf (0-8); URINE APPEARANCE CLEAR; URINE BACTERIA 15.3 /hpf (NEGATIVE); URINE BILIRUBIN NEGATIVE (NEGATIVE); URINE COLOR YELLOW; URINE GLUCOSE (UA) NEGATIVE (NEGATIVE); URINE KETONE 1+ (NEGATIVE); URINE LEUK ESTERASE 2+ (NEGATIVE); URINE NITRITE NEGATIVE (NEGATIVE); URINE PROTEIN NEGATIVE (NEGATIVE); URINE RBC 2 /hpf (0-4); URINE UROBILINOGEN 0.2 mg/dL (0.2-1.0); URINE WBC 3 /hpf (0-5)
[2019-05-15] MEDS: VANCOMYCIN 250 MG/5 ML ORAL SOLUTION PO SCH ×3 (01:00→11:32)
[2019-05-15] MEDS: SODIUM CHLORIDE 1,000 ML IV SCH ×3 (01:08→12:55)
[2019-05-15] MEDS ORDERED: cefTRIAXone SODIUM 1 GM VIAL ONE (09:23)
[2019-05-15] MEDS ORDERED: DEXTROSE 5%-WATER - 50 ML IVPB ONE (09:23)
[2019-05-15 09:47] LABS: HEMOGLOBIN 11.1 GM/dL (10.7-15.3); MCHC 32.6 g/dl (32.0-36.0); MEAN CELL VOLUME 95.1 fl (80-96); MEAN PLT VOLUME 7.7 fl (7.5-11.1); PLATELET COUNT 412 K/MM3 (134-434); RBC 3.58 M/mm3 (3.60-5.2); RDW 14.9 % (11.6-15.6); WHITE BLOOD COUNT 11.6 K/mm3 (4.0-10.0)
[2019-05-15 10:24] LABS: ALBUMIN 2.1 g/dl (3.4-5.0); BILIRUBIN,TOTAL 0.4 mg/dL (0.2-1); CREATININE 0.5 mg/dL (0.55-1.3); POTASSIUM 3.5 mmol/L (3.5-5.1); TOT PROT 4.9 g/dl (6.4-8.2)
[2019-05-15 10:35] LABS: BLOOD UREA NITROGEN 2.1 mg/dL (7-18); CALCIUM 6.9 mg/dL (8.5-10.1)
[2019-05-15] MEDS: CEFTRIAXONE 1 GM in DEXTROSE 5%-WATER - 50 ML IVPB SCH (11:43)
[2019-05-15] MEDS ORDERED: CALCIUM GLUCONATE 10% - 1,000 MG/10 ML VIAL IVPB ONE (11:45)
[2019-05-15] MEDS: LEVOTHYROXINE NA 75 MCG TABLET (FP) PO SCH (11:55)
--- NOTE | 2019-05-15 13:53 | PN ---
Physical Exam: SUBJECTIVE: Patient seen and examined at bedside. There were no acute events overnight. This AM she continues to request to be left alone. OBJECTIVE: Vital Signs Temp Pulse Resp BP Pulse Ox 98.2 F 79 18 105/58 L 95 05/15/19 18:50 05/15/19 18:50 05/15/19 18:50 05/15/19 18:50 05/14/19 21:00 GENERAL: Alert. Refusing to participate in interview. In no acute distress. HEAD: NCAT EYES: Epicanthic eyefold, TRACI, EOMI, conjunctiva clear. ENT: Ears normal, nares patent. Dry mucous membranes. Poor dentition ABDOMEN: Soft, BS present in all 4 quadrants, non-distended, no JVD, PSYCHIATRIC: Refusing examination SKIN: Warm, dry, normal turgor, no rashes or lesions noted, normal capillary refill. Laboratory Results - last 24 hr 05/14/19 05/14/19 05/15/19 08:04 15:30 07:45 WBC 11.6 H RBC 3.58 L Hgb 11.1 Hct 34.0 MCV 95.1 MCH 31.0 MCHC 32.6 RDW 14.9 Plt Count 412 MPV 7.7 Neutrophils % (Manual) 62.0 Band Neutrophils % 18.0 Lymphocytes % (Manual) 13.0 Monocytes % (Manual) 7 Eosinophils % (Manual) 0.0 Basophils % (Manual) 0.0 Myelocytes % (Man) 0 Promyelocytes % (Man) 0 Blast Cells % (Manual) 0 Nucleated RBC % 0 Metamyelocytes 0 Hypochromia 0 Platelet Estimate Normal Polychromasia 1+ Poikilocytosis 1+ Anisocytosis 1+ Microcytosis 1+ Macrocytosis 0 Spherocytes 1+ Target Cells 1+ Ovalocytes 1+ [place] Cells 1+ Sodium Potassium Chloride Carbon Dioxide Anion Gap BUN Creatinine Est GFR (CKD-EPI)AfAm Est GFR (CKD-EPI)NonAf Random Glucose Calcium Total Bilirubin AST ALT Alkaline Phosphatase Total Protein Albumin Urine Color Yellow Urine Appearance Clear Urine pH 5.0 D Ur Specific [place] 1.018 Urine Protein Negative Urine Glucose (UA) Negative Urine Ketones 1+ H Urine Blood 2+ H Urine Nitrite Negative Urine Bilirubin Negative Urine Urobilinogen 0.2 Ur Leukocyte Esterase 2+ H Urine WBC (Auto) 3 Urine RBC (Auto) 2 Urine Casts (Auto) 0 U Pathogenic Cast Auto None U Epithel Cells (Auto) 1.8 Urine Bacteria (Auto) 15.3 05/15/19 07:45 WBC RBC Hgb Hct MCV MCH MCHC RDW Plt Count MPV Neutrophils % (Manual) Band Neutrophils % Lymphocytes % (Manual) Monocytes % (Manual) Eosinophils % (Manual) Basophils % (Manual) Myelocytes % (Man) Promyelocytes % (Man) Blast Cells % (Manual) Nucleated RBC % Metamyelocytes Hypochromia Platelet Estimate Polychromasia Poikilocytosis Anisocytosis Microcytosis Macrocytosis Spherocytes Target Cells Ovalocytes [place] Cells Sodium 143 Potassium 3.5 Chloride 108 H Carbon Dioxide 23 Anion Gap 11 BUN 2.1 L* Creatinine 0.5 L Est GFR (CKD-EPI)AfAm 121.07 Est GFR (CKD-EPI)NonAf 104.46 Random Glucose 53 L Calcium 6.9 L* Total Bilirubin 0.4 AST 24 ALT 12 L Alkaline Phosphatase 44 L Total Protein 4.9 L Albumin 2.1 L Urine Color Urine Appearance Urine pH Ur Specific [place] Urine Protein Urine Glucose (UA) Urine Ketones Urine Blood Urine Nitrite Urine Bilirubin Urine Urobilinogen Ur Leukocyte Esterase Urine WBC (Auto) Urine RBC (Auto) Urine Casts (Auto) U Pathogenic Cast Auto U Epithel Cells (Auto) Urine Bacteria (Auto) Active Medications Calcium Carbonate/Cholecalciferol (Os-Uriel 500+D -) 1 tab PO BID [facility] Last Admin: 05/15/19 22:23 Dose: 1 tab Cholecalciferol (Vitamin D3 -) 2,000 unit PO DAILY [facility] Ceftriaxone Sodium 1 gm/ (Dextrose) 50 mls @ 100 mls/hr IVPB DAILY MARY; Protocol Last Admin: 05/15/19 11:43 Dose: 100 mls/hr Metronidazole (Flagyl 500mg Premixed Ivpb -) 500 mg in 100 mls @ 100 mls/hr IVPB Q8H-IV MARY Last Admin: 05/16/19 01:00 Dose: 100 mls/hr Sodium Chloride (Normal Saline -) 1,000 mls @ 125 mls/hr IV ASDIR MARY Last Admin: 05/16/19 01:05 Dose: 125 mls/hr Levothyroxine Sodium (Synthroid -) 75 mcg PO DAILY@0700 [facility] Last Admin: 05/15/19 11:55 Dose: 75 mcg ASSESSMENT/PLAN: 63 y/o female PMH Down's Syndrome, osteoporosis, and hypothyroidism c/o bloody diarrhea with ambulatory + step test, pancolitis on CT, admitted for care of poss. infectious causes. # Sepsis 2/2 pancolitis - + strep test, + CT, + FOBT - From SNF, consider c diff - For strep: ceftriaxone 1 gm IV qd DAY 2:10 and metronidazole 500 mg IV q8h - C diff neg - IVF # Low Ca, repleted # Hypothyroidism - Confirmed levothyroxine 75 mcg po qd # F/E/N - NS - Cont. to monitor - Full liquid diet # DVT prophylaxis - scd/regular ambulation # Disposition - Admit to med/surg Iggy Taylor MD Visit type - Emergency Visit Emergency Visit: No - New Patient This patient is new to me today: No - Critical Care Critical Care patient: No ATTENDING PHYSICIAN STATEMENT I saw and evaluated the patient. I reviewed the resident's note and discussed the case with the resident. I agree with the resident's findings and plan as documented. SUBJECTIVE: OBJECTIVE: ASSESSMENT AND PLAN:
--- NOTE | 2019-05-15 15:35 | PN ---
Teaching Attending Note Name of Resident: Iggy Taylor ATTENDING PHYSICIAN STATEMENT I saw and evaluated the patient. I reviewed the resident's note and discussed the case with the resident. I agree with the resident's findings and plan as documented. SUBJECTIVE: No pain. not cooperative with interview and refused exam. Exam: NAD, awake, not cooperative ASSESSMENT AND PLAN: 63 y/o lady with h/o Down's syndrome, osteoporosis and hypothyroidism who presented with Abd pain and diarrhea, she tested positive for strep in urgent care. 1- Sepsis from Pancolitis :improved. r.o infectious causes - cont ceftriaxone and flagyl - Dc po vanco as c diff neg - cont IVF - cont full liquid diet . will advance to full in am - Hb remains stable . white count improved 2- Reported + rapid strep test from urgent care. Rapid strep and throat cx are neg in our hospital but those were taken after PCN G was given ( confirmed with the pharmacist) - Will treat for strep throat for total of 10 days - day 2 of ceftriaxone. 3- h/o hypothyroidism: cont synthroid. dose confirmed 4- Hepatic steatosis. 5- Hypodense lesions in spleen: f/u as out pt with GI. DVT PX: SCds in setting of rectal bleed . if hB remains stable by tomorrow, will add SQ heparin
[2019-05-15] MEDS ORDERED: PT OWN MED DRAWER 7, Y5N ONE (20:58)
[2019-05-15] MEDS: CALCIUM 500MG/VIT-D 200 UNITS COMBO TABLET (FP) PO SCH (22:23)
[2019-05-16] MEDS: SODIUM CHLORIDE 1,000 ML IV SCH ×3 (01:05→17:11)
[2019-05-16] MEDS: LEVOTHYROXINE NA 75 MCG TABLET (FP) PO SCH (06:49)
[2019-05-16 08:35] LABS: HEMATOCRIT 34.2 % (32.4-45.2); HEMOGLOBIN 11.4 GM/dL (10.7-15.3); MCH 31.1 pg (25.7-33.7); MCHC 33.4 g/dl (32.0-36.0); MEAN CELL VOLUME 93.2 fl (80-96); MEAN PLT VOLUME 7.4 fl (7.5-11.1); PLATELET COUNT 430 K/MM3 (134-434); RBC 3.66 M/mm3 (3.60-5.2); RDW 14.9 % (11.6-15.6); WHITE BLOOD COUNT 9.8 K/mm3 (4.0-10.0)
[2019-05-16 08:48] LABS: CREATININE 0.6 mg/dL (0.55-1.3)
[2019-05-16 08:49] LABS: ALBUMIN 2.2 g/dl (3.4-5.0); BILIRUBIN,TOTAL 0.2 mg/dL (0.2-1); CALCIUM 7.1 mg/dL (8.5-10.1); POTASSIUM 3.2 mmol/L (3.5-5.1)
[2019-05-16 08:59] LABS: BLOOD UREA NITROGEN 1.2 mg/dL (7-18)
[2019-05-16] MEDS ORDERED: POLYETHYLENE GLYCOL 1 GM PO SCH (10:00)
[2019-05-16] MEDS ORDERED: PT OWN MED DRAWER 7, Y5N ONE (10:50)
[2019-05-16] MEDS ORDERED: DEXTROSE 5%-WATER - 50 ML IVPB ONE (10:51)
[2019-05-16] MEDS ORDERED: cefTRIAXone SODIUM 1 GM VIAL ONE (10:51)
[2019-05-16] MEDS: CHOLECALCIFEROL (VIT D3) 1,000 UNIT (25 MCG) TABLET PO SCH (11:09)
[2019-05-16] MEDS: CALCIUM 500MG/VIT-D 200 UNITS COMBO TABLET (FP) PO SCH ×2 (11:09→23:48)
[2019-05-16] MEDS: CEFTRIAXONE 1 GM in DEXTROSE 5%-WATER - 50 ML IVPB SCH (13:30)
[2019-05-16] MEDS ORDERED: LORazepam 2 MG TABLET PO PRN (15:27)
[2019-05-16] MEDS ORDERED: POTASSIUM CHLORIDE TABS 20 MEQ TABLET.ER (FP) PO ONE (16:18)
--- NOTE | 2019-05-16 16:25 | PN ---
Progress Note (short form) - Note Progress Note: Subjective: she reprots abd pian in periumbilical area. no N/V. she pulled her IV and RN had to place a new one , with increased agitation after that . sitter in room Objective: Vital Signs: Last Vital Signs Temp Pulse Resp BP Pulse Ox 97.9 F 80 16 103/63 95 05/16/19 14:30 05/16/19 14:30 05/16/19 14:30 05/16/19 14:30 05/16/19 09:00 Laboratory Results - last 24 hr 05/16/19 05/16/19 07:50 07:50 WBC 9.8 RBC 3.66 Hgb 11.4 Hct 34.2 MCV 93.2 MCH 31.1 MCHC 33.4 RDW 14.9 Plt Count 430 MPV 7.4 L Sodium 141 Potassium 3.2 L Chloride 109 H Carbon Dioxide 25 Anion Gap 7 L BUN 1.2 L* Creatinine 0.6 Est GFR (CKD-EPI)AfAm 114.02 Est GFR (CKD-EPI)NonAf 98.38 Random Glucose 101 Calcium 7.1 L Total Bilirubin 0.2 AST 24 ALT 16 Alkaline Phosphatase 45 Total Protein 5.0 L Albumin 2.2 L Physical Exam: NAD, awake, not cooperative Abd: soft, TTP in periumbilical area , NL BS . ND did not allow rest of exam ASSESSMENT AND PLAN: 63 y/o lady with h/o Down's syndrome, osteoporosis and hypothyroidism who presented with Abd pain and diarrhea, she tested positive for strep in urgent care. 1- Sepsis from Pancolitis :improved.but still has pain and tenderness . - cont ceftriaxone and flagyl - off vanco due to neg c diff - cont IVF . derease rate - cont full liquid diet . will not advance due to continued pain. might advance in am - Hb remains stable . white count improved - replete K 2- Reported + rapid strep test from urgent care. Rapid strep and throat cx are neg in our hospital but those were taken after PCN G was given - Will treat for strep throat for total of 10 days - day 3 of ceftriaxone. ( duration can be finished pO ) - dc droplet isolation 3- h/o hypothyroidism: cont synthroid. 4- Agitation : use PRN po ativan 5- Hypodense lesions in spleen: f/u as out pt with GI. DVT PX: SCds. ad SQ heparin Visit type - Emergency Visit Emergency Visit: Yes ED Registration Date: 05/13/19 Care time: The patient presented to the Emergency Department on the above date and was hospitalized for further evaluation of their emergent condition. - New Patient This patient is new to me today: No - Critical Care Critical Care patient: No
[2019-05-16] MEDS: HEPARIN NA (PORCINE) 5,000 UNITS/ML 1ML VIAL SQ SCH (23:48)
[2019-05-17] MEDS: SODIUM CHLORIDE 1,000 ML IV SCH ×2 (02:11→22:39)
[2019-05-17] MEDS: HEPARIN NA (PORCINE) 5,000 UNITS/ML 1ML VIAL SQ SCH ×3 (06:27→22:39)
[2019-05-17] MEDS: LEVOTHYROXINE NA 75 MCG TABLET (FP) PO SCH (06:27)
[2019-05-17 09:41] LABS: CALCIUM 7.1 mg/dL (8.5-10.1); MAGNESIUM 1.8 mg/dL (1.8-2.4); PHOSPHOROUS 1.4 mg/dL (2.5-4.9); POTASSIUM 3.3 mmol/L (3.5-5.1)
[2019-05-17] MEDS ORDERED: PT OWN MED DRAWER 7, Y5N ONE ×2 (10:01→22:22)
[2019-05-17] MEDS ORDERED: cefTRIAXone SODIUM 1 GM VIAL ONE (10:01)
[2019-05-17] MEDS ORDERED: DEXTROSE 5%-WATER - 50 ML IVPB ONE (10:01)
[2019-05-17] MEDS ORDERED: MAGNESIUM SULF 50% (8.12 MEQ/2 ML-1 GM VIAL) IVPB ONE (10:15)
[2019-05-17] MEDS: CALCIUM 500MG/VIT-D 200 UNITS COMBO TABLET (FP) PO SCH ×2 (10:26→22:40)
[2019-05-17] MEDS: CEFTRIAXONE 1 GM in DEXTROSE 5%-WATER - 50 ML IVPB SCH (10:27)
[2019-05-17] MEDS: CHOLECALCIFEROL (VIT D3) 1,000 UNIT (25 MCG) TABLET PO SCH (10:28)
[2019-05-17] MEDS ORDERED: POTASSIUM PHOSPHATE 15 MM in SODIUM CHLORIDE 250 ML IVPB ONE (11:30)
--- NOTE | 2019-05-17 13:56 | PN ---
Physical Exam: SUBJECTIVE: Patient seen and examined at bedside. Overnight there were no acute events. This AM she is feeling much better, is communicative, and offers no complaints. OBJECTIVE: Vital Signs Temp Pulse Resp BP Pulse Ox 97.7 F 89 18 105/60 95 05/17/19 10:40 05/17/19 10:40 05/17/19 10:40 05/17/19 10:40 05/16/19 21:00 GENERAL: AOx1, in no acute distress, cheerful HEAD: NCAT EYES: Epicanthic eyefold, TRACI, EOMI, conjunctiva clear. ENT: Ears normal, nares patent, oropharynx clear without exudates. Moist mucous membranes. Poor dentition. NECK: Normal range of motion, supple without lymphadenopathy, JVD, or masses. LUNGS: CTAB. No wheezes, and no crackles. No accessory muscle use. HEART: RRR s1 s2 ABDOMEN: Soft, BS present in all 4 quadrants, non-distended, no JVD, MUSCULOSKELETAL: No bony deformities or tenderness. No CVA tenderness. UPPER EXTREMITIES: 2+ pulses, warm, well-perfused. No cyanosis. No clubbing. No peripheral edema. LOWER EXTREMITIES: 2+ pulses, warm, well-perfused. No calf tenderness. No peripheral edema. NEUROLOGICAL: No focal deficits. Cranial nerves II-XII intact. Normal speech. Strength 5/5 thorughout. Babinski NEG. No dysdiadokinesia. Gait not appreciated. PSYCHIATRIC: Cooperative. Good eye contact. Appropriate mood and affect. SKIN: Warm, dry, normal turgor, no rashes or lesions noted, normal capillary refill. Laboratory Results - last 24 hr 05/17/19 08:45 Potassium 3.3 L Calcium 7.1 L Phosphorus 1.4 L Magnesium 1.8 Active Medications Calcium Carbonate/Cholecalciferol (Os-Uriel 500+D -) 1 tab PO BID [facility] Last Admin: 05/17/19 10:26 Dose: 1 tab Cholecalciferol (Vitamin D3 -) 2,000 unit PO DAILY [facility] Last Admin: 05/17/19 10:28 Dose: 2,000 unit Heparin Sodium (Porcine) (Heparin -) 5,000 unit SQ TID [facility] Last Admin: 05/17/19 14:01 Dose: 5,000 unit Ceftriaxone Sodium 1 gm/ (Dextrose) 50 mls @ 100 mls/hr IVPB DAILY [facility]; Protocol Last Admin: 05/17/19 10:27 Dose: 100 mls/hr Metronidazole (Flagyl 500mg Premixed Ivpb -) 500 mg in 100 mls @ 100 mls/hr IVPB Q8H-IV MARY Last Admin: 05/17/19 10:28 Dose: 100 mls/hr Sodium Chloride (Normal Saline -) 1,000 mls @ 75 mls/hr IV ASDIR [facility] Last Admin: 05/17/19 02:11 Dose: 75 mls/hr Potassium Phosphate 15 mm/ (Sodium Chloride) 255 mls @ 62.5 mls/hr IVPB ONCE ONE Stop: 05/17/19 15:34 Last Admin: 05/17/19 13:36 Dose: 62.5 mls/hr Levothyroxine Sodium (Synthroid -) 75 mcg PO DAILY@0700 [facility] Last Admin: 05/17/19 06:27 Dose: 75 mcg Lorazepam (Ativan) 0.5 mg PO BID PRN PRN Reason: AGITATION ASSESSMENT/PLAN: 63 y/o female PMH Down's Syndrome, osteoporosis, and hypothyroidism c/o bloody diarrhea with ambulatory + step test, pancolitis on CT, admitted for care of poss. infectious causes. # Sepsis 2/2 pancolitis - No longer experiencing diarrhea - + strep test, + CT, + FOBT - Discussed stopping ceftriaxone 1 gm IV qd DAY 2:10 and metronidazole 500 mg IV q8h - C diff neg - IVF # Low K and Ca, repleted # Hypothyroidism - Levothyroxine 75 mcg po qd # F/E/N - NS - Cont. to monitor - Full liquid diet # DVT prophylaxis - scd/regular ambulation # Disposition - Admit to med/surg Iggy Taylor MD Visit type - Emergency Visit Emergency Visit: No - New Patient This patient is new to me today: No - Critical Care Critical Care patient: No ATTENDING PHYSICIAN STATEMENT I saw and evaluated the patient. I reviewed the resident's note and discussed the case with the resident. I agree with the resident's findings and plan as documented. SUBJECTIVE: OBJECTIVE: ASSESSMENT AND PLAN:
[2019-05-17] MEDS ORDERED: KCL 10 MEQ IVPB 10 MEQ/100 ML INFUS.BAG IVPB SCH (14:00)
[2019-05-17] MEDS ORDERED: POTASSIUM CHLORIDE TABS 20 MEQ TABLET.ER (FP) PO ONE (14:00)
--- NOTE | 2019-05-17 17:09 | PN ---
Teaching Attending Note Name of Resident: Iggy Taylor ATTENDING PHYSICIAN STATEMENT I saw and evaluated the patient. I reviewed the resident's note and discussed the case with the resident. I agree with the resident's findings and plan as documented. SUBJECTIVE: no events over night . she denies any pain. per aid poor po intake , but tolerated her full liquid diet . OBJECTIVE: NAD, awake, not cooperative declined exam. No tenderness in abd per resident's exam . diarrhea improved . Non bloody ASSESSMENT AND PLAN: 63 y/o lady with h/o Down's syndrome, osteoporosis and hypothyroidism who presented with Abd pain and diarrhea, she tested positive for strep in urgent care. 1- Sepsis from Pancolitis :improved. diarrhea decreased, and tolerated deit - advance to soft diet - cont IVF due to poor po intake and slight diarrhea - cont ceftriaxone and flagyl - can probably switch to po Abx tomorrow if improving 2- Reported + rapid strep test from urgent care. Rapid strep and throat cx are neg in our hospital but those were taken after PCN G was given - Will treat for strep throat for total of 10 days - day 4 of ceftriaxone. ( duration can be finished pO ) 3- h/o hypothyroidism: cont synthroid. 4- Agitation: use PRN po ativan 5- Hypodense lesions in spleen: f/u as out pt with GI. DVT PX: SCds. ad SQ heparin Possible dc tomorrow
[2019-05-18] MEDS: HEPARIN NA (PORCINE) 5,000 UNITS/ML 1ML VIAL SQ SCH ×2 (06:44→14:12)
[2019-05-18] MEDS: LEVOTHYROXINE NA 75 MCG TABLET (FP) PO SCH (06:44)
[2019-05-18 09:23] LABS: BLOOD UREA NITROGEN 3.8 mg/dL (7-18); CALCIUM 7.1 mg/dL (8.5-10.1); CREATININE 0.5 mg/dL (0.55-1.3); PHOSPHOROUS 1.9 mg/dL (2.5-4.9); POTASSIUM 4.2 mmol/L (3.5-5.1)
[2019-05-18] MEDS: CHOLECALCIFEROL (VIT D3) 1,000 UNIT (25 MCG) TABLET PO SCH (10:37)
[2019-05-18] MEDS: CALCIUM 500MG/VIT-D 200 UNITS COMBO TABLET (FP) PO SCH (10:37)
[2019-05-18] MEDS ORDERED: cefTRIAXone SODIUM 1 GM VIAL ONE (11:43)
[2019-05-18] MEDS ORDERED: DEXTROSE 5%-WATER - 50 ML IVPB ONE (11:43)
[2019-05-18] MEDS: CEFTRIAXONE 1 GM in DEXTROSE 5%-WATER - 50 ML IVPB SCH (11:54)
--- NOTE | 2019-05-18 13:54 | DS ---
Physical Exam: SUBJECTIVE: Patient seen and examined at bedside. There were no acute events overnight. This AM she offers no new complaints. OBJECTIVE: Vital Signs Period Temp Pulse Resp BP Sys/[place] Pulse Ox Last 24 Hr 97.4 F-98.0 F 82-92 18-18 91-133/45-71 95-95 PHYSICAL EXAM GENERAL: AOx1, in no acute distress, cheerful HEAD: NCAT EYES: Epicanthic eyefold, TRACI, EOMI, conjunctiva clear. ENT: Ears normal, nares patent, oropharynx clear without exudates. Moist mucous membranes. Poor dentition. NECK: Normal range of motion, supple without lymphadenopathy, JVD, or masses. LUNGS: CTAB. No wheezes, and no crackles. No accessory muscle use. HEART: RRR s1 s2 ABDOMEN: Soft, BS present in all 4 quadrants, non-distended, no JVD, MUSCULOSKELETAL: No bony deformities or tenderness. No CVA tenderness. UPPER EXTREMITIES: 2+ pulses, warm, well-perfused. No cyanosis. No clubbing. No peripheral edema. LOWER EXTREMITIES: 2+ pulses, warm, well-perfused. No calf tenderness. No peripheral edema. NEUROLOGICAL: No focal deficits. Cranial nerves II-XII intact. Normal speech. Strength 5/5 thorughout. Babinski NEG. No dysdiadokinesia. Gait not appreciated. PSYCHIATRIC: Cooperative. Good eye contact. Appropriate mood and affect. SKIN: Warm, dry, normal turgor, no rashes or lesions noted, normal capillary refill. LABS 05/18/19 07:30 Sodium 139 Potassium 4.2 Chloride 108 H Carbon Dioxide 23 Anion Gap 8 BUN 3.8 L Creatinine 0.5 L Est GFR (CKD-EPI)AfAm 121.07 Est GFR (CKD-EPI)NonAf 104.46 Random Glucose 83 Calcium 7.1 L Phosphorus 1.9 L Magnesium 2.0 HOSPITAL COURSE: Date of Admission:05/13/19 63 y/o female PMH Down's Syndrome, osteoporosis, and hypothyroidism c/o bloody diarrhea with ambulatory + step test, pancolitis on CT, admitted for care of sepsis 2/2 pancolitis. + CT, + FOBT. C diff neg. Reported + rapid strep test from urgent care. Rapid strep and throat cx are neg in our hospital but those were taken after PCN G was given. She improved with conservative management; IVF and bowel rest. She lactose free soft diet for a week after discharge , then regular diet. Abx changed to po on dc: cephalosporins x 6 more days (to cover for strep throat.) and flagyl x 3 more days (total of 7). Home dose levothyroxine 75 mcg po qd. She was dc to her SNF. Date of Discharge: 05/18/19 Minutes to complete discharge: 40 Discharge Summary Problems reviewed: Yes Reason For Visit: HYPOTENSION DIARRHEA PHARYNGITIS DUE TO STREPTOCOC Current Active Problems Strep pharyngitis (Acute) Condition: Improved - Instructions Diet, Activity, Other Instructions: YOUR VISIT You came to the hospital because you were experiencing diarrhea. You were admitted to the hospital for care of acute colitis. While here you were seen by a wheel worker. You are now stable and may return home. you were also previously diagnosed with strep throat Activity Resume all activity MEDICATIONS Please continue to take your medications as prescribed. NEW MEDICATIONS - Metronidazole 500 mg by mouth every 8 hours for 3 days - Cefpodoxime 200 mg by mouth 2 times a day for 6 days ( to cover strep ) ADDITIONAL CARE Please make an appointment to see a primary care provider 1 week from today. Please make an appointment to see a wheel worker in 1 week. A referral has to Dr. Kerr has been provided. Please make an appointment to discuss the hypodense lesions in your spleen, with hematology. A referral to Dr. Pena has been provided. ADDITIONAL INFORMATION Please call 911 or come directly to the emergency department if you experience unusual headache, vision change, shortness of breath, chest pain, numbness, tingling, loss of alertness/awareness, loss of function, unusual bleeding or any alarming symptoms. lactose free soft diet for a week after dc then back to routine . please remind her to stay hydrated Referrals: John Kerr DO [Staff Physician] - ON STAFF,NOT [Primary Care Provider] - Gagan Pena MD [Staff Physician] - Disposition: HOME - Home Medications Comprehensive Discharge Medication List: Ambulatory Orders Calcium Carbonate/Vitamin D3 [Calcium 600-Vit D3 200 Tablet] 1 each PO BID #0 tablet 11/19/11 Cholecalciferol (Vitamin D3) [Vitamin D] 2,000 unit PO DAILY #0 tablet 11/19/11 Levothyroxine [Synthroid -] 75 mcg PO DAILY #0 tablet 11/19/11 Polyethylene Glycol 3350 [Miralax] 1 gm PO DAILY #0 powd.pack 11/19/11 Cefpodoxime Proxetil [Vantin -] 200 mg PO Q12H #12 tablet 05/18/19 Metronidazole 500 mg PO Q8H 3 Days #9 tablet 05/18/19 This patient is new to me today: No Emergency Visit: No Critical Care patient: No - Discharge Referral Referred to [facility] No ATTENDING PHYSICIAN STATEMENT I saw and evaluated the patient. I reviewed the resident's note and discussed the case with the resident. I agree with the resident's findings and plan as documented. SUBJECTIVE: OBJECTIVE: ASSESSMENT AND PLAN:
--- NOTE | 2019-05-18 13:54 | PN ---
Teaching Attending Note Name of Resident: Iggy Taylor ATTENDING PHYSICIAN STATEMENT I saw and evaluated the patient. I reviewed the resident's note and discussed the case with the resident. I agree with the resident's findings and plan as documented. SUBJECTIVE: No events. she feels " better". no events over night no more diarrhea OBJECTIVE: NAD, awake, not cooperative abd is soft, NT. Lungs : CTAB declined rest of exam ASSESSMENT AND PLAN: 63 y/o lady with h/o Down's syndrome, osteoporosis and hypothyroidism who presented with Abd pain and diarrhea, she tested positive for strep in urgent care. 1- Sepsis from Pancolitis :improved. lactose free soft diet for a week after discharge , then regular diet -change Abx to po . cont cephalosporins x 6 more days ( to cover for strep throat. ) . flagyl x 3 more days ( total of 7 ) 2- Reported + rapid strep test from urgent care. Rapid strep and throat cx are neg in our hospital but those were taken after PCN G was given -Abx as above 3- h/o hypothyroidism: cont synthroid. 4- Agitation: use PRN po ativan 5- Hypodense lesions in spleen: f/u as out pt with GI. dc back to her facility
[2019-05-18 15:56] VITALS: BP 105/50; PULSE 83; TEMP 97.4
== END 2019-05-18 15:44 | disposition home or self-care (01) | DRG 872 ==
LOC: JER 14:02 → JERBED 18:23 → J5S 05-14 01:13
PROVIDERS: ADMIT Internal Medicine; ATTEND Internal Medicine
DX: A41.9 Sepsis, unspecified organism (principal); K51.00 Ulcerative (chronic) pancolitis without complications; K52.9 Noninfective gastroenteritis and colitis, unspecified; I95.9 Hypotension, unspecified; J02.0 Streptococcal pharyngitis; Q90.9 Down syndrome, unspecified; E03.9 Hypothyroidism, unspecified; D47.3 Essential (hemorrhagic) thrombocythemia
CPT/HCPCS: 36415; 74177-TC; 80048; 80053; 81003; 82272; 82310; 83605; 83690; 83735; 84100; 84132; 84443; 85025; 85027; 85610; 85730; 86850; 86900; 86901; 87040; 87045; 87046; 87070; 87205; 87324; 87427; 87449; 87804; 87880; 99282-25; J0131; J1644; J7030

== ENCOUNTER 2020-03-02 07:31 | Inpatient (IN) | payer OTHER ==
[2020-03-02] MEDS ORDERED: SODIUM CHLORIDE 2,041 ML IV ONE (07:43)
[2020-03-02 07:47] VITALS: BMI 28.3
[2020-03-02] MEDS ORDERED: LACTATED RINGERS SOLUTION 1000 ML INFUS.BAG IV ONE (08:20)
[2020-03-02 08:27] LABS: VENOUS BASE EXCESS 0.1 mmol/L (-2-2); VENOUS O2 SATURATION 45.1 % (70-80); VENOUS PCO2 42.9 mmHg (38-52); VENOUS PH 7.387 (7.310-7.410)
[2020-03-02 08:39] LABS: BASO % 0.4 % (0-2.0); HEMATOCRIT 35.9 % (32.4-45.2); LYMPH % 4.8 % (8-40); MCH 32.2 pg (25.7-33.7); MCHC 33.4 g/dl (32.0-36.0); MEAN CELL VOLUME 96.5 fl (80-96); MEAN PLT VOLUME 8.8 fl (7.5-11.1); MONO % 9.4 % (3.8-10.2); NEUT % 85.4 % (42.8-82.8); PLATELET COUNT 266 K/MM3 (134-434); RBC 3.72 M/mm3 (3.60-5.2); WHITE BLOOD COUNT 21.2 K/mm3 (4.0-10.0)
[2020-03-02 08:55] LABS: EPI CELLS 12 /uL (0-25.1); HYALINE CASTS 2 /uL (0-3.1); PH,URINE 6.5 (5.0-8.0); URINE APPEARANCE CLEAR; URINE BACTERIA 5 /uL (0-1359); URINE BILIRUBIN NEGATIVE (NEGATIVE); URINE COLOR YELLOW; URINE GLUCOSE (UA) NEGATIVE (NEGATIVE); URINE KETONE 1+ (NEGATIVE); URINE LEUK ESTERASE NEGATIVE (NEGATIVE); URINE NITRITE NEGATIVE (NEGATIVE); URINE PROTEIN 2+ (NEGATIVE); URINE RBC 20 /uL (0-23.9); URINE WBC 6 /uL (0-25.8)
[2020-03-02 08:56] LABS: POTASSIUM 3.6 mmol/L (3.5-5.1)
[2020-03-02 08:58] LABS: CALCIUM 8.4 mg/dL (8.5-10.1)
[2020-03-02 08:59] LABS: ALBUMIN 2.9 g/dl (3.4-5.0); BLOOD UREA NITROGEN 19.7 mg/dL (7-18)
[2020-03-02 09:04] LABS: BILIRUBIN,TOTAL 0.7 mg/dL (0.2-1); TOT PROT 6.7 g/dl (6.4-8.2)
[2020-03-02] MEDS ORDERED: ACETAMINOPHEN 1000 MG/100 ML VIAL (NON FORMULARY) IVPB ONE (09:18)
[2020-03-02] MEDS ORDERED: ACETAMINOPHEN INJECTION 100 ML IVPB ONE (09:19)
[2020-03-02] MEDS ORDERED: VANCOMYCIN HCL 1,500 MG in DEXTROSE 5%-WATER - 500 ML IVPB ONE (09:30)
[2020-03-02] MEDS ORDERED: PIPERACILLIN/TAZOB 3.375 GM 3.375 GM in DEXTROSE 5%-WATER - 50 ML IVPB ONE (09:31)
[2020-03-02] MEDS ORDERED: VANCOMYCIN 1 GRAM (PRE-DOCKED) 1,000 MG/250 ML BAG IVPB ONE (09:37)
[2020-03-02 09:51] LABS: BILIRUBIN,DIRECT 0.2 mg/dL (0.0-0.2)
[2020-03-02 10:15] LABS: ANISOCYTOSIS 1+; MACROCYTOSIS 0; PLATELET ESTIMATE NORMAL
[2020-03-02] MEDS ORDERED: ALBUTEROL SO4 HFA INHALER IH PRN (12:09)
[2020-03-02] MEDS ORDERED: SODIUM CHLORIDE 1,000 ML IV SCH (12:15)
[2020-03-02] MEDS: POTASSIUM CHLORIDE 10 MEQ in SODIUM CHLORIDE 1,000 ML IV SCH (17:57)
[2020-03-02] MEDS: PIPERACILLIN/TAZOB 3.375 GM 3.375 GM in DEXTROSE 5%-WATER - 50 ML IVPB SCH (18:08)
[2020-03-02] MEDS: PATIENT'S OWN MEDICATION (NON-FORMULARY) (Calcium Carbonate/Vitamin D3 [Calcium 600-Vit D3 PO SCH (23:27)
[2020-03-03] MEDS ORDERED: DEXTROSE 5%-WATER - 50 ML IVPB ONE ×3 (01:15→10:45)
[2020-03-03] MEDS ORDERED: PIPERACILLIN/TAZOBACTAM 3.375 GM VIAL IVPB ONE ×2 (01:15→08:57)
[2020-03-03] MEDS: PIPERACILLIN/TAZOB 3.375 GM 3.375 GM in DEXTROSE 5%-WATER - 50 ML IVPB SCH ×3 (02:28→11:16)
[2020-03-03] MEDS ORDERED: ACETAMINOPHEN 325 MG TABLET (FP) PO ONE (06:25)
[2020-03-03 06:43] LABS: BASO % 0.2 % (0-2.0); HEMATOCRIT 32.1 % (32.4-45.2); HEMOGLOBIN 10.6 GM/dL (10.7-15.3); LYMPH % 6.4 % (8-40); MCH 31.7 pg (25.7-33.7); MCHC 33.1 g/dl (32.0-36.0); MEAN CELL VOLUME 95.8 fl (80-96); MEAN PLT VOLUME 8.7 fl (7.5-11.1); MONO % 8.3 % (3.8-10.2); NEUT % 85.1 % (42.8-82.8); PLATELET COUNT 229 K/MM3 (134-434); RBC 3.35 M/mm3 (3.60-5.2); RDW 14.2 % (11.6-15.6); WHITE BLOOD COUNT 22.9 K/mm3 (4.0-10.0)
[2020-03-03 07:02] LABS: CHLORIDE 108 mmol/L (98-107); POTASSIUM 3.1 mmol/L (3.5-5.1); SODIUM 140 mmol/L (136-145)
[2020-03-03 07:07] LABS: ALBUMIN 2.4 g/dl (3.4-5.0); CALCIUM 7.3 mg/dL (8.5-10.1)
[2020-03-03 07:08] LABS: ANION GAP 5 MMOL/L (8-16); BLOOD UREA NITROGEN 7.6 mg/dL (7-18); CO2 27 mmol/L (21-32); GLUCOSE,RANDOM 130 mg/dL (74-106); MAGNESIUM 1.7 mg/dL (1.8-2.4)
[2020-03-03 07:10] LABS: SGPT/ALT 36 U/L (13-61)
[2020-03-03 07:11] LABS: ALK PHOS 49 U/L (45-117); CREATININE 0.8 mg/dL (0.55-1.3); PHOSPHOROUS 1.6 mg/dL (2.5-4.9); SGOT/AST 72 U/L (15-37)
[2020-03-03 07:12] LABS: BILIRUBIN,TOTAL 0.8 mg/dL (0.2-1); TOT PROT 5.9 g/dl (6.4-8.2)
[2020-03-03 07:13] LABS: LDH 266 U/L (84-246)
[2020-03-03 07:36] LABS: ERYTHROCYTE SEDIMENTATION RATE 102 mm/hr (0-30)
[2020-03-03] MEDS ORDERED: MAGNESIUM SULF 50% (8.12 MEQ/2 ML-1 GM VIAL) IVPB ONE (07:51)
[2020-03-03] MEDS ORDERED: MAGNESIUM SULFATE IN WATER 2 GM/50 ML IVPB IVPB ONE (08:15)
[2020-03-03 08:55] LABS: ANISOCYTOSIS 1+; MACROCYTOSIS 1+; PLATELET ESTIMATE NORMAL
[2020-03-03] MEDS ORDERED: PT OWN MED DRAWER 7, Y5N ONE ×2 (08:57→13:39)
[2020-03-03] MEDS ORDERED: POTASSIUM PHOSPHATE 30 MM in SODIUM CHLORIDE 500 ML IVPB ONE (09:00)
[2020-03-03] MEDS: ENOXAPARIN NA (PORCINE) 40 MG/0.4 ML DISP.SYRIN SQ SCH (09:14)
[2020-03-03] MEDS ORDERED: LEVOTHYROXINE SODIUM 75 MCG PO SCH (10:00)
[2020-03-03] MEDS ORDERED: POLYETHYLENE GLYCOL 1 GM PO SCH (10:00)
[2020-03-03] MEDS ORDERED: PATIENT'S OWN MEDICATION (NON-FORMULARY) (Denosumab 60 MG) SQ SCH (10:00)
[2020-03-03] MEDS ORDERED: POTASSIUM CHLORIDE ORAL LIQUID 20 MEQ/15 ML PO ONE (10:14)
[2020-03-03] MEDS ORDERED: CEFTRIAXONE 1 GM in DEXTROSE 5%-WATER - 50 ML IVPB ONE (10:23)
[2020-03-03] MEDS ORDERED: cefTRIAXone SODIUM 1 GM VIAL ONE (10:45)
[2020-03-03] MEDS ORDERED: CEFTRIAXONE 2 GM in DEXTROSE 5%-WATER 100 ML IVPB SCH (11:15)
[2020-03-03] MEDS: PATIENT'S OWN MEDICATION (NON-FORMULARY) (Calcium Carbonate/Vitamin D3 [Calcium 600-Vit D3 PO SCH (11:41)
[2020-03-03] MEDS: AZITHROMYCIN IVPB 500 MG/250 ML BAG IVPB SCH (12:11)
[2020-03-03] MEDS: POTASSIUM CHLORIDE 10 MEQ in SODIUM CHLORIDE 1,000 ML IV SCH (12:50)
[2020-03-03] MEDS: ACETAMINOPHEN 1000 MG/100 ML VIAL (NON FORMULARY) IVPB PRN (17:05)
[2020-03-03] MEDS ORDERED: DOXYCYCLINE HYCLATE 100 MG CAPSULE PO SCH (18:00)
[2020-03-03] MEDS: CALCIUM 500MG/VIT-D 200 UNITS COMBO TABLET (FP) PO SCH (22:24)
[2020-03-04] MEDS: POTASSIUM CHLORIDE 10 MEQ in SODIUM CHLORIDE 1,000 ML IV SCH (05:17)
[2020-03-04] MEDS: LEVOTHYROXINE NA 75 MCG TABLET (FP) PO SCH (06:14)
[2020-03-04 07:40] LABS: BASO % 0.3 % (0-2.0); EOS % 0.1 % (0-4.5); HEMATOCRIT 32.6 % (32.4-45.2); HEMOGLOBIN 10.5 GM/dL (10.7-15.3); LYMPH % 5.3 % (8-40); MCH 31.3 pg (25.7-33.7); MCHC 32.3 g/dl (32.0-36.0); MEAN CELL VOLUME 96.7 fl (80-96); MEAN PLT VOLUME 8.8 fl (7.5-11.1); MONO % 5.9 % (3.8-10.2); NEUT % 88.4 % (42.8-82.8); PLATELET COUNT 221 K/MM3 (134-434); RBC 3.37 M/mm3 (3.60-5.2); RDW 14.7 % (11.6-15.6); WHITE BLOOD COUNT 20.3 K/mm3 (4.0-10.0)
[2020-03-04 07:45] LABS: CHLORIDE 112 mmol/L (98-107); POTASSIUM 3.7 mmol/L (3.5-5.1); SODIUM 142 mmol/L (136-145)
[2020-03-04 07:47] LABS: ALBUMIN 2.1 g/dl (3.4-5.0); ANION GAP 8 MMOL/L (8-16); BLOOD UREA NITROGEN 9.4 mg/dL (7-18); CO2 22 mmol/L (21-32); GLUCOSE,RANDOM 84 mg/dL (74-106); MAGNESIUM 2.5 mg/dL (1.8-2.4)
[2020-03-04 07:50] LABS: CREATININE 0.7 mg/dL (0.55-1.3); PHOSPHOROUS 1.4 mg/dL (2.5-4.9); SGPT/ALT 35 U/L (13-61)
[2020-03-04 07:52] LABS: BILIRUBIN,TOTAL 0.6 mg/dL (0.2-1); SGOT/AST 55 U/L (15-37); TOT PROT 5.4 g/dl (6.4-8.2)
[2020-03-04 07:53] LABS: ALK PHOS 55 U/L (45-117)
[2020-03-04 07:55] LABS: CALCIUM 6.8 mg/dL (8.5-10.1)
[2020-03-04] MEDS ORDERED: DEXTROSE 5%-WATER 100 ML IVPB ONE (08:16)
[2020-03-04 09:12] LABS: ERYTHROCYTE SEDIMENTATION RATE 100 mm/hr (0-30)
[2020-03-04] MEDS: CEFTRIAXONE 2 GM in DEXTROSE 5%-WATER 100 ML IVPB SCH (09:20)
[2020-03-04] MEDS ORDERED: PATIENT'S OWN MEDICATION (NON-FORMULARY) (Denosumab 60 MG) SQ SCH (10:00)
[2020-03-04] MEDS: ACETAMINOPHEN 1000 MG/100 ML VIAL (NON FORMULARY) IVPB PRN (10:20)
[2020-03-04] MEDS: ENOXAPARIN NA (PORCINE) 40 MG/0.4 ML DISP.SYRIN SQ SCH (10:25)
[2020-03-04] MEDS: CALCIUM 500MG/VIT-D 200 UNITS COMBO TABLET (FP) PO SCH ×2 (10:27→22:49)
[2020-03-04] MEDS: AZITHROMYCIN IVPB 500 MG/250 ML BAG IVPB SCH (10:27)
[2020-03-04] MEDS: SODIUM CHLORIDE 1,000 ML IV SCH (10:32)
[2020-03-04 11:21] LABS: ANISOCYTOSIS 1+; MACROCYTOSIS 1+; PLATELET ESTIMATE NORMAL
[2020-03-04] MEDS: POLYETHYLENE GLYCOL 3350 119 GM BTL PO SCH (12:17)
[2020-03-04] MEDS ORDERED: NAPH,MB-DB/K PH,MBDB POWDER PACKET PO ONE (15:47)
[2020-03-05] MEDS: SODIUM CHLORIDE 1,000 ML IV SCH (03:23)
[2020-03-05] MEDS ORDERED: ACETAMINOPHEN 1000 MG/100 ML VIAL (NON FORMULARY) IVPB ONE (04:16)
[2020-03-05] MEDS: LEVOTHYROXINE NA 75 MCG TABLET (FP) PO SCH (07:35)
[2020-03-05 08:50] LABS: HEMATOCRIT 32.7 % (32.4-45.2); HEMOGLOBIN 11.1 GM/dL (10.7-15.3); MCH 32.6 pg (25.7-33.7); MCHC 33.9 g/dl (32.0-36.0); MEAN CELL VOLUME 96.1 fl (80-96); MEAN PLT VOLUME 8.6 fl (7.5-11.1); PLATELET COUNT 257 K/MM3 (134-434); RDW 14.6 % (11.6-15.6); WHITE BLOOD COUNT 11.4 K/mm3 (4.0-10.0)
[2020-03-05 09:08] LABS: POTASSIUM 3.5 mmol/L (3.5-5.1)
[2020-03-05] MEDS ORDERED: PT OWN MED DRAWER 7, Y5N ONE (09:08)
[2020-03-05] MEDS ORDERED: DEXTROSE 5%-WATER 100 ML IVPB ONE (09:09)
[2020-03-05 09:17] LABS: BLOOD UREA NITROGEN 8.1 mg/dL (7-18); MAGNESIUM 2.4 mg/dL (1.8-2.4)
[2020-03-05] MEDS: POLYETHYLENE GLYCOL 3350 119 GM BTL PO SCH (09:18)
[2020-03-05] MEDS: ENOXAPARIN NA (PORCINE) 40 MG/0.4 ML DISP.SYRIN SQ SCH (09:18)
[2020-03-05] MEDS: CEFTRIAXONE 2 GM in DEXTROSE 5%-WATER 100 ML IVPB SCH (09:18)
[2020-03-05] MEDS: CALCIUM 500MG/VIT-D 200 UNITS COMBO TABLET (FP) PO SCH ×2 (09:18→21:28)
[2020-03-05 09:20] LABS: CREATININE 0.6 mg/dL (0.55-1.3)
[2020-03-05 09:21] LABS: PHOSPHOROUS 1.9 mg/dL (2.5-4.9)
[2020-03-05 09:49] LABS: CALCIUM 6.6 mg/dL (8.5-10.1)
[2020-03-05] MEDS: AZITHROMYCIN IVPB 500 MG/250 ML BAG IVPB SCH (14:13)
[2020-03-05] MEDS ORDERED: NAPH,MB-DB/K PH,MBDB POWDER PACKET PO ONE (14:23)
[2020-03-05 16:22] LABS: URINE APPEARANCE CLEAR; URINE BILIRUBIN NEGATIVE (NEGATIVE); URINE COLOR YELLOW; URINE GLUCOSE (UA) NEGATIVE (NEGATIVE); URINE KETONE TRACE (NEGATIVE); URINE LEUK ESTERASE NEGATIVE (NEGATIVE); URINE NITRITE NEGATIVE (NEGATIVE); URINE PROTEIN TRACE (NEGATIVE)
[2020-03-05] MEDS: valACYclovir HCL 500 MG TABLET (FP) PO SCH (21:28)
[2020-03-06] MEDS: LEVOTHYROXINE NA 75 MCG TABLET (FP) PO SCH (06:33)
[2020-03-06 09:25] LABS: BASO % 1.1 % (0-2.0); EOS % 1.1 % (0-4.5); HEMOGLOBIN 10.7 GM/dL (10.7-15.3); LYMPH % 10.8 % (8-40); MCH 31.4 pg (25.7-33.7); MCHC 33.3 g/dl (32.0-36.0); MEAN CELL VOLUME 94.1 fl (80-96); PLATELET COUNT 334 K/MM3 (134-434); RDW 14.3 % (11.6-15.6); WHITE BLOOD COUNT 13.3 K/mm3 (4.0-10.0)
[2020-03-06 09:43] LABS: POTASSIUM 3.5 mmol/L (3.5-5.1)
[2020-03-06 09:48] LABS: PHOSPHOROUS 1.4 mg/dL (2.5-4.9)
[2020-03-06 09:49] LABS: CREATININE 0.6 mg/dL (0.55-1.3)
[2020-03-06 09:51] LABS: CALCIUM 6.8 mg/dL (8.5-10.1)
[2020-03-06] MEDS ORDERED: DEXTROSE 5%-WATER 100 ML IVPB ONE (10:28)
[2020-03-06] MEDS ORDERED: PT OWN MED DRAWER 7, Y5N ONE (10:28)
[2020-03-06] MEDS: CALCIUM 500MG/VIT-D 200 UNITS COMBO TABLET (FP) PO SCH ×2 (10:29→21:53)
[2020-03-06] MEDS: CEFTRIAXONE 2 GM in DEXTROSE 5%-WATER 100 ML IVPB SCH (10:30)
[2020-03-06] MEDS: valACYclovir HCL 500 MG TABLET (FP) PO SCH ×2 (10:30→21:53)
[2020-03-06] MEDS: POLYETHYLENE GLYCOL 3350 119 GM BTL PO SCH (10:30)
[2020-03-06] MEDS: ENOXAPARIN NA (PORCINE) 40 MG/0.4 ML DISP.SYRIN SQ SCH (10:30)
[2020-03-06] MEDS ORDERED: SODIUM CHLORIDE 1,000 ML IV SCH (11:00)
[2020-03-06] MEDS: AZITHROMYCIN IVPB 500 MG/250 ML BAG IVPB SCH (11:09)
[2020-03-06] MEDS ORDERED: SODIUM CHLORIDE 1,000 ML with POTASSIUM CHLORIDE 10 MEQ IV SCH (13:28)
[2020-03-06] MEDS ORDERED: ALBUTEROL SO4 HFA INHALER IH PRN (14:07)
[2020-03-06] MEDS: NAPH,MB-DB/K PH,MBDB POWDER PACKET PO SCH ×2 (14:12→21:53)
[2020-03-06] MEDS: POTASSIUM CHLORIDE 10 MEQ in SODIUM CHLORIDE 1,000 ML IV SCH (15:19)
[2020-03-06 15:45] LABS: PLATELET ESTIMATE NORMAL
[2020-03-07] MEDS: LEVOTHYROXINE NA 75 MCG TABLET (FP) PO SCH (06:43)
[2020-03-07] MEDS ORDERED: DEXTROSE 5%-WATER 100 ML IVPB ONE (09:30)
[2020-03-07] MEDS: valACYclovir HCL 500 MG TABLET (FP) PO SCH ×2 (09:36→21:59)
[2020-03-07] MEDS: CALCIUM 500MG/VIT-D 200 UNITS COMBO TABLET (FP) PO SCH ×2 (09:37→21:59)
[2020-03-07] MEDS: NAPH,MB-DB/K PH,MBDB POWDER PACKET PO SCH ×2 (09:38→21:59)
[2020-03-07] MEDS: ENOXAPARIN NA (PORCINE) 40 MG/0.4 ML DISP.SYRIN SQ SCH (09:38)
[2020-03-07] MEDS: POLYETHYLENE GLYCOL 3350 119 GM BTL PO SCH ×2 (09:39→13:12)
[2020-03-07] MEDS ORDERED: CEFTRIAXONE 2 GM in DEXTROSE 5%-WATER 100 ML IVPB SCH (10:00)
[2020-03-07] MEDS ORDERED: AZITHROMYCIN IVPB 500 MG/250 ML BAG IVPB SCH (10:00)
[2020-03-07 10:36] LABS: HEMATOCRIT 34.5 % (32.4-45.2); HEMOGLOBIN 11.6 GM/dL (10.7-15.3); MCH 31.8 pg (25.7-33.7); MCHC 33.6 g/dl (32.0-36.0); MEAN CELL VOLUME 94.5 fl (80-96); MEAN PLT VOLUME 9.1 fl (7.5-11.1); PLATELET COUNT 384 K/MM3 (134-434); RBC 3.65 M/mm3 (3.60-5.2); RDW 14.3 % (11.6-15.6); WHITE BLOOD COUNT 10.7 K/mm3 (4.0-10.0)
[2020-03-07 11:10] LABS: POTASSIUM 3.8 mmol/L (3.5-5.1)
[2020-03-07 11:13] LABS: BLOOD UREA NITROGEN 6.6 mg/dL (7-18)
[2020-03-07 11:16] LABS: CREATININE 0.6 mg/dL (0.55-1.3); PHOSPHOROUS 1.7 mg/dL (2.5-4.9)
[2020-03-07 11:24] LABS: CALCIUM 6.8 mg/dL (8.5-10.1)
[2020-03-07] MEDS: POTASSIUM CHLORIDE 10 MEQ in SODIUM CHLORIDE 1,000 ML IV SCH (12:50)
[2020-03-07] MEDS ORDERED: SODIUM PHOSPHATE - 20 MM in DEXTROSE 5%-WATER - 250 ML IVPB ONE (15:00)
[2020-03-07] MEDS ORDERED: ACETAMINOPHEN 1000 MG/100 ML VIAL (NON FORMULARY) IVPB ONE (16:32)
[2020-03-07] MEDS ORDERED: PIPERACILLIN/TAZOBACTAM 3.375 GM VIAL IVPB ONE (17:06)
[2020-03-07] MEDS ORDERED: DEXTROSE 5%-WATER - 50 ML IVPB ONE (17:06)
[2020-03-07] MEDS: PIPERACILLIN/TAZOB 3.375 GM 3.375 GM in DEXTROSE 5%-WATER - 50 ML IVPB SCH (17:15)
[2020-03-07] MEDS: SENNOSIDES 8.6MG TABLET (FP) PO SCH (21:59)
[2020-03-08] MEDS ORDERED: DEXTROSE 5%-WATER - 50 ML IVPB ONE ×3 (01:59→17:16)
[2020-03-08] MEDS ORDERED: PIPERACILLIN/TAZOBACTAM 3.375 GM VIAL IVPB ONE ×3 (01:59→17:15)
[2020-03-08] MEDS: PIPERACILLIN/TAZOB 3.375 GM 3.375 GM in DEXTROSE 5%-WATER - 50 ML IVPB SCH ×3 (02:50→17:18)
[2020-03-08] MEDS: LEVOTHYROXINE NA 75 MCG TABLET (FP) PO SCH (06:26)
[2020-03-08 07:41] LABS: BASO % 1.8 % (0-2.0); EOS % 3.5 % (0-4.5); HEMOGLOBIN 11.8 GM/dL (10.7-15.3); LYMPH % 17.4 % (8-40); MCH 31.6 pg (25.7-33.7); MCHC 33.7 g/dl (32.0-36.0); MEAN CELL VOLUME 93.9 fl (80-96); MEAN PLT VOLUME 8.8 fl (7.5-11.1); MONO % 10.2 % (3.8-10.2); NEUT % 67.1 % (42.8-82.8); PLATELET COUNT 415 K/MM3 (134-434); RBC 3.73 M/mm3 (3.60-5.2); RDW 14.6 % (11.6-15.6)
[2020-03-08 08:02] LABS: POTASSIUM 3.5 mmol/L (3.5-5.1)
[2020-03-08 08:17] LABS: ALBUMIN 2.1 g/dl (3.4-5.0); BLOOD UREA NITROGEN 4.9 mg/dL (7-18); MAGNESIUM 2.1 mg/dL (1.8-2.4)
[2020-03-08 08:20] LABS: CREATININE 0.6 mg/dL (0.55-1.3); PHOSPHOROUS 2.4 mg/dL (2.5-4.9)
[2020-03-08 08:22] LABS: TOT PROT 5.8 g/dl (6.4-8.2)
[2020-03-08 08:24] LABS: CALCIUM 6.6 mg/dL (8.5-10.1)
[2020-03-08] MEDS ORDERED: NAPH,MB-DB/K PH,MBDB POWDER PACKET PO ONE (08:54)
[2020-03-08 09:07] LABS: ANISOCYTOSIS 0; MACROCYTOSIS 0; PLATELET ESTIMATE NORMAL
[2020-03-08] MEDS: CALCIUM 500MG/VIT-D 200 UNITS COMBO TABLET (FP) PO SCH ×2 (10:19→22:18)
[2020-03-08] MEDS: valACYclovir HCL 500 MG TABLET (FP) PO SCH ×2 (10:19→22:18)
[2020-03-08] MEDS: POLYETHYLENE GLYCOL 3350 119 GM BTL PO SCH (10:20)
[2020-03-08] MEDS: ENOXAPARIN NA (PORCINE) 40 MG/0.4 ML DISP.SYRIN SQ SCH (10:20)
[2020-03-08] MEDS ORDERED: CALCIUM CARBONATE 650 MG TABLET PO SCH (10:30)
[2020-03-08] MEDS: POTASSIUM CHLORIDE 10 MEQ in SODIUM CHLORIDE 1,000 ML IV SCH ×2 (11:56→17:23)
[2020-03-08] MEDS ORDERED: POTASSIUM PHOSPHATE 20 MM in DEXTROSE 5%-WATER - 250 ML IVPB ONE (12:55)
[2020-03-08] MEDS ORDERED: PT OWN MED DRAWER 7, Y5N ONE (14:07)
[2020-03-08] MEDS: SENNOSIDES 8.6MG TABLET (FP) PO SCH (22:18)
[2020-03-09] MEDS ORDERED: DEXTROSE 5%-WATER - 50 ML IVPB ONE ×2 (01:11→10:50)
[2020-03-09] MEDS ORDERED: PIPERACILLIN/TAZOBACTAM 3.375 GM VIAL IVPB ONE ×2 (01:11→10:50)
[2020-03-09] MEDS: PIPERACILLIN/TAZOB 3.375 GM 3.375 GM in DEXTROSE 5%-WATER - 50 ML IVPB SCH ×2 (01:36→10:58)
[2020-03-09] MEDS: LEVOTHYROXINE NA 75 MCG TABLET (FP) PO SCH (06:14)
[2020-03-09] MEDS ORDERED: CALCIUM GLUCONATE 10% - 1,000 MG/10 ML VIAL IVPB ONE (07:45)
[2020-03-09 08:14] LABS: HEMOGLOBIN 11.9 GM/dL (10.7-15.3); MCH 31.7 pg (25.7-33.7); MCHC 33.2 g/dl (32.0-36.0); MEAN CELL VOLUME 95.5 fl (80-96); MEAN PLT VOLUME 8.6 fl (7.5-11.1); PLATELET COUNT 519 K/MM3 (134-434); RBC 3.77 M/mm3 (3.60-5.2); RDW 14.3 % (11.6-15.6)
[2020-03-09 09:10] LABS: POTASSIUM 4.5 mmol/L (3.5-5.1)
[2020-03-09 09:33] LABS: BILIRUBIN,TOTAL 0.4 mg/dL (0.2-1)
[2020-03-09 09:40] LABS: ALBUMIN 2.3 g/dl (3.4-5.0); BLOOD UREA NITROGEN 9.3 mg/dL (7-18); CALCIUM 7.5 mg/dL (8.5-10.1)
[2020-03-09 09:44] LABS: CREATININE 0.7 mg/dL (0.55-1.3)
[2020-03-09] MEDS ORDERED: PT OWN MED DRAWER 7, Y5N ONE ×2 (10:50→13:03)
[2020-03-09] MEDS: POLYETHYLENE GLYCOL 3350 119 GM BTL PO SCH (10:59)
[2020-03-09] MEDS: CALCIUM 500MG/VIT-D 200 UNITS COMBO TABLET (FP) PO SCH (10:59)
[2020-03-09] MEDS: valACYclovir HCL 500 MG TABLET (FP) PO SCH (10:59)
[2020-03-09] MEDS: ENOXAPARIN NA (PORCINE) 40 MG/0.4 ML DISP.SYRIN SQ SCH (11:00)
[2020-03-09] MEDS: POTASSIUM CHLORIDE 10 MEQ in SODIUM CHLORIDE 1,000 ML IV SCH (15:00)
[2020-03-09 15:41] VITALS: BP 110/63; PULSE 74; TEMP 97.6
== END 2020-03-09 16:52 | DRG 871 ==
LOC: JER 07:31 → JERBED 10:40 → J4S 03-03 00:50 → J8W 03-06 13:44
PROVIDERS: ATTEND Internal Medicine
DX: A41.89 Other specified sepsis (principal); G93.41 Metabolic encephalopathy; J96.01 Acute respiratory failure with hypoxia; J18.9 Pneumonia, unspecified organism; N17.9 Acute kidney failure, unspecified; E03.9 Hypothyroidism, unspecified; F91.9 Conduct disorder, unspecified; K58.9 Irritable bowel syndrome, unspecified; Q90.9 Down syndrome, unspecified; I34.1 Nonrheumatic mitral (valve) prolapse; D72.829 Elevated white blood cell count, unspecified; B00.9 Herpesviral infection, unspecified; E83.39 Other disorders of phosphorus metabolism; E87.6 Hypokalemia; E83.42 Hypomagnesemia; M81.0 Age-related osteoporosis without current pathological fracture; R50.9 Fever, unspecified
CPT/HCPCS: 36415; 71045-TC-FY; 71250-TC; 74150-TC; 80048; 80053; 81003; 82248; 82550; 82553; 82728; 82803; 83605; 83615; 83735; 84100; 84439; 84443; 84484; 85025; 85027; 85379; 85651; 86140; 86769; 87040; 87086; 87633; 87804; 87899; 93005; 93010; 93970-TC; 99285-25; C9803; J0131; U0003

== ENCOUNTER 2020-03-12 13:56 | Inpatient (IN) | payer OTHER ==
[2020-03-12] MEDS ORDERED: HEPARIN NA (PORCINE) 5,000 UNITS/ML 1ML VIAL IVPUSH PRN ×2 (14:46)
[2020-03-12] MEDS ORDERED: SODIUM CHLORIDE 0.9% 500 ML INFUS.BAG IV ONE ×2 (14:48→20:10)
[2020-03-12 16:02] LABS: ARTERIAL BLOOD GAS BASE EXCESS -1.9 mmol/L (-2-2); ARTERIAL BLOOD GAS PO2 107.2 mmHg (80-100); ARTERIAL BLOOD GAS pH 7.415 (7.350-7.450)
[2020-03-12 16:05] LABS: BASO % 1.2 % (0-2.0); EOS % 0.2 % (0-4.5); HEMATOCRIT 39.5 % (32.4-45.2); HEMOGLOBIN 13.3 GM/dL (10.7-15.3); LYMPH % 7.4 % (8-40); MCH 32.4 pg (25.7-33.7); MCHC 33.8 g/dl (32.0-36.0); MEAN CELL VOLUME 95.8 fl (80-96); MEAN PLT VOLUME 7.8 fl (7.5-11.1); MONO % 6.4 % (3.8-10.2); NEUT % 84.8 % (42.8-82.8); PLATELET COUNT 648 K/MM3 (134-434); RBC 4.12 M/mm3 (3.60-5.2); RDW 14.8 % (11.6-15.6); WHITE BLOOD COUNT 16.5 K/mm3 (4.0-10.0)
[2020-03-12 16:13] LABS: CHLORIDE 106 mmol/L (98-107); POTASSIUM 4.3 mmol/L (3.5-5.1); SODIUM 138 mmol/L (136-145)
[2020-03-12 16:15] LABS: CALCIUM 8.7 mg/dL (8.5-10.1)
[2020-03-12 16:16] LABS: ALBUMIN 3.2 g/dl (3.4-5.0); ANION GAP 7 MMOL/L (8-16); BLOOD UREA NITROGEN 16.4 mg/dL (7-18); CO2 24 mmol/L (21-32); GLUCOSE,RANDOM 108 mg/dL (74-106)
[2020-03-12 16:17] LABS: INR 1.12 (0.83-1.09); PROTHROMBIN TIME (PATIENT) 13.5 SEC (9.7-13.0)
[2020-03-12 16:19] LABS: CREATININE 0.8 mg/dL (0.55-1.3); SGOT/AST 28 U/L (15-37); SGPT/ALT 49 U/L (13-61)
[2020-03-12 16:20] LABS: ACTIVATED PTT 34.1 SECONDS (25.2-36.5); BILIRUBIN,TOTAL 0.4 mg/dL (0.2-1)
[2020-03-12 16:21] LABS: TOT PROT 7.2 g/dl (6.4-8.2)
[2020-03-12 16:22] LABS: ALK PHOS 62 U/L (45-117)
[2020-03-12] MEDS ORDERED: HEPARIN INFUSION - 25,000 UNITS/500 ML INFUS.BAG IVPB ONE (16:55)
[2020-03-12] MEDS: HEPARIN - 25,000 UNIT in SODIUM CHLORIDE 495 ML IV SCH (17:16)
[2020-03-12 21:04] LABS: MAGNESIUM 2.5 mg/dL (1.8-2.4)
[2020-03-12 21:08] LABS: PHOSPHOROUS 3.6 mg/dL (2.5-4.9)
[2020-03-12 21:28] LABS: LDH 272 U/L (84-246)
[2020-03-12] MEDS ORDERED: LACTOSE REDUCED FOOD PO PRN (23:06)
[2020-03-12] MEDS ORDERED: [UNRECOGNIZED DRUG - OTHER] PO PRN (23:06)
[2020-03-12] MEDS ORDERED: ALBUTEROL SO4 HFA INHALER IH PRN (23:06)
[2020-03-12] MEDS: valACYclovir HCL 500 MG TABLET (FP) PO SCH (23:48)
[2020-03-13] MEDS ORDERED: PIPERACILLIN/TAZOB 3.375 GM 3.375 GM in DEXTROSE 5%-WATER - 50 ML IVPB ONE (01:00)
[2020-03-13] MEDS ORDERED: VANCOMYCIN 1 GM in D5W (PRE-DOCKED) 1,000 MG/250 ML IVPB ONE (01:00)
[2020-03-13] MEDS ORDERED: DEXTROSE 5%-WATER - 50 ML IVPB ONE ×3 (01:20→17:06)
[2020-03-13] MEDS ORDERED: PIPERACILLIN/TAZOBACTAM 3.375 GM VIAL IVPB ONE ×3 (01:20→17:06)
[2020-03-13 03:53] VITALS: BMI 23.1
[2020-03-13] MEDS: POLYMYXIN B SULFATE/TMP 10 ML OPHTHALMIC SOLUTION OD SCH ×3 (06:19→21:03)
[2020-03-13] MEDS ORDERED: LEVOTHYROXINE NA 75 MCG TABLET (FP) PO SCH (07:00)
[2020-03-13 08:21] LABS: ALBUMIN 2.5 g/dl (3.4-5.0); ALK PHOS 53 U/L (45-117); ANION GAP 9 MMOL/L (8-16); BILIRUBIN,TOTAL 0.5 mg/dL (0.2-1); BLOOD UREA NITROGEN 9.9 mg/dL (7-18); CALCIUM 7.1 mg/dL (8.5-10.1); CHLORIDE 111 mmol/L (98-107); CO2 22 mmol/L (21-32); CREATININE 0.6 mg/dL (0.55-1.3); GLUCOSE,RANDOM 92 mg/dL (74-106); MAGNESIUM 2.3 mg/dL (1.8-2.4); PHOSPHOROUS 2.7 mg/dL (2.5-4.9); POTASSIUM 3.6 mmol/L (3.5-5.1); SGOT/AST 24 U/L (15-37); SGPT/ALT 33 U/L (13-61); SODIUM 142 mmol/L (136-145); TOT PROT 5.9 g/dl (6.4-8.2)
[2020-03-13] MEDS: valACYclovir HCL 500 MG TABLET (FP) PO SCH ×2 (09:49→21:04)
[2020-03-13] MEDS: CYANOCOBALAMIN 1,000 MCG TABLET (FP) PO SCH (09:49)
[2020-03-13] MEDS: POLYETHYLENE GLYCOL 3350 119 GM BTL PO SCH (09:49)
[2020-03-13] MEDS ORDERED: VIT D3 VIT K PO SCH (10:00)
[2020-03-13] MEDS ORDERED: [UNRECOGNIZED DRUG - OTHER] PO SCH (10:00)
[2020-03-13] MEDS ORDERED: BERBERINE PO SCH (10:00)
[2020-03-13] MEDS ORDERED: PIPERACILLIN/TAZOB 3.375 GM 3.375 GM in DEXTROSE 5%-WATER - 50 ML IVPB SCH (10:00)
[2020-03-13] MEDS ORDERED: HOPS PO SCH (10:00)
[2020-03-13 10:42] LABS: INR 1.13 (0.83-1.09); PROTHROMBIN TIME (PATIENT) 13.8 SEC (9.7-13.0)
[2020-03-13 10:50] LABS: POTASSIUM 3.7 mmol/L (3.5-5.1)
[2020-03-13 10:53] LABS: ALBUMIN 2.6 g/dl (3.4-5.0); BLOOD UREA NITROGEN 9.3 mg/dL (7-18); CALCIUM 7.4 mg/dL (8.5-10.1)
[2020-03-13 10:57] LABS: CREATININE 0.7 mg/dL (0.55-1.3)
[2020-03-13 10:59] LABS: BILIRUBIN,TOTAL 0.8 mg/dL (0.2-1); TOT PROT 5.9 g/dl (6.4-8.2)
[2020-03-13 11:01] LABS: ACTIVATED PTT 122.9 SECONDS (25.2-36.5)
[2020-03-13] MEDS ORDERED: LEVOTHYROXINE NA 100 MCG TABLET (FP) PO SCH ×2 (13:26→16:11)
[2020-03-13] MEDS ORDERED: LEVOTHYROXINE NA 25 MCG TABLET (FP) PO ONE (13:30)
[2020-03-13] MEDS ORDERED: VANCOMYCIN 1 GRAM (PRE-DOCKED) 1,000 MG/250 ML BAG IVPB SCH (14:30)
[2020-03-13] MEDS: CALCIUM 500MG/VIT-D 200 UNITS COMBO TABLET (FP) PO SCH ×2 (15:47→20:50)
[2020-03-13] MEDS: CHOLECALCIFEROL (VIT D3) 400 UNIT (10 MCG) TABLET PO SCH ×2 (15:47→20:50)
[2020-03-13] MEDS: PIPERACILLIN/TAZOB 3.375 GM 3.375 GM in DEXTROSE 5%-WATER - 50 ML IVPB SCH (17:13)
[2020-03-13] MEDS: HEPARIN - 25,000 UNIT in SODIUM CHLORIDE 495 ML IV SCH ×2 (17:43→18:52)
[2020-03-13] MEDS ORDERED: SENNOSIDES 8.6MG TABLET (FP) PO SCH (22:00)
[2020-03-14] MEDS ORDERED: PIPERACILLIN/TAZOBACTAM 3.375 GM VIAL IVPB ONE ×2 (00:43→10:22)
[2020-03-14] MEDS ORDERED: DEXTROSE 5%-WATER - 50 ML IVPB ONE ×2 (00:44→10:22)
[2020-03-14] MEDS: PIPERACILLIN/TAZOB 3.375 GM 3.375 GM in DEXTROSE 5%-WATER - 50 ML IVPB SCH ×2 (01:05→10:29)
[2020-03-14] MEDS ORDERED: PT OWN MED DRAWER 7, Y5N ONE (04:36)
[2020-03-14] MEDS: POLYMYXIN B SULFATE/TMP 10 ML OPHTHALMIC SOLUTION OD SCH ×2 (06:02→13:35)
[2020-03-14] MEDS ORDERED: LIOTHYRONINE SODIUM 5 MCG TABLET PO SCH (07:00)
[2020-03-14 08:37] LABS: HEMATOCRIT 35.2 % (32.4-45.2); HEMOGLOBIN 12.2 GM/dL (10.7-15.3); MCH 33.7 pg (25.7-33.7); MCHC 34.7 g/dl (32.0-36.0); MEAN CELL VOLUME 97.3 fl (80-96); MEAN PLT VOLUME 7.9 fl (7.5-11.1); PLATELET COUNT 505 K/MM3 (134-434); RBC 3.62 M/mm3 (3.60-5.2); RDW 14.9 % (11.6-15.6); WHITE BLOOD COUNT 7.7 K/mm3 (4.0-10.0)
[2020-03-14 09:16] LABS: BLOOD UREA NITROGEN 7.2 mg/dL (7-18); CALCIUM 7.5 mg/dL (8.5-10.1); CREATININE 0.7 mg/dL (0.55-1.3); POTASSIUM 3.5 mmol/L (3.5-5.1)
[2020-03-14] MEDS ORDERED: PIPERACILLIN/TAZOB 3.375 GM 3.375 GM in DEXTROSE 5%-WATER - 50 ML IVPB SCH (10:00)
[2020-03-14] MEDS: CYANOCOBALAMIN 1,000 MCG TABLET (FP) PO SCH (10:26)
[2020-03-14] MEDS: valACYclovir HCL 500 MG TABLET (FP) PO SCH (10:28)
[2020-03-14] MEDS: POLYETHYLENE GLYCOL 3350 119 GM BTL PO SCH (10:29)
[2020-03-14] MEDS ORDERED: APIXABAN 5 MG TABLET PO SCH (13:45)
[2020-03-14] MEDS ORDERED: VANCOMYCIN 1 GRAM (PRE-DOCKED) 1,000 MG/250 ML BAG IVPB SCH (14:30)
[2020-03-14 15:13] VITALS: BP 101/54; PULSE 96; TEMP 97.6
[2020-03-14] MEDS: CHOLECALCIFEROL (VIT D3) 400 UNIT (10 MCG) TABLET PO SCH (16:47)
[2020-03-14] MEDS: CALCIUM 500MG/VIT-D 200 UNITS COMBO TABLET (FP) PO SCH (16:47)
== END 2020-03-14 19:30 | disposition home or self-care (01) | DRG 300 ==
LOC: JER 13:56 → JERBED 18:03 → J8W 22:48
PROVIDERS: ADMIT Internal Medicine; ATTEND Internal Medicine
DX: I82.412 Acute embolism and thrombosis of left femoral vein (principal); I82.422 Acute embolism and thrombosis of left iliac vein; J90 Pleural effusion, not elsewhere classified; J98.11 Atelectasis; E46 Unspecified protein-calorie malnutrition; Q90.9 Down syndrome, unspecified; E06.3 Autoimmune thyroiditis; F91.9 Conduct disorder, unspecified; I34.1 Nonrheumatic mitral (valve) prolapse; D72.829 Elevated white blood cell count, unspecified; K58.9 Irritable bowel syndrome, unspecified; J02.0 Streptococcal pharyngitis; K76.0 Fatty (change of) liver, not elsewhere classified; E88.09 Other disorders of plasma-protein metabolism, not elsewhere classified; R00.0 Tachycardia, unspecified; I95.9 Hypotension, unspecified; M81.0 Age-related osteoporosis without current pathological fracture; Z68.23 Body mass index [BMI] 23.0-23.9, adult
CPT/HCPCS: 36415; 36600; 71275-TC; 72193-TC; 74160-TC; 76604-TC; 80048; 80053; 82272; 82550; 82728; 82803; 83605; 83615; 83735; 84100; 84439; 84443; 84481; 84484; 85025; 85027; 85610; 85651; 85730; 86140; 86850; 86900; 86901; 87040; 93005; 93010; 93926-TC; 93971-TC; 99285-25; C9803; J1644; Q9967; U0003

== ENCOUNTER 2020-04-24 11:43 | Emergency (ER) | payer OTHER ==
[2020-04-24 11:52] VITALS: BMI 23.6
[2020-04-24 14:33] VITALS: BP 111/65; PULSE 90; TEMP 98.6
== END 2020-04-24 14:14 | disposition home or self-care (01) ==
LOC: JER 11:43
DX: S00.83XA Contusion of other part of head, initial encounter (principal)
CPT/HCPCS: 70450-TC; 99284-25

== ENCOUNTER 2023-09-26 15:19 | Inpatient (IN) | payer OTHER ==
[2023-09-26] MEDS ORDERED: HALOPERIDOL LACTATE 5 MG/ML ONE (16:22)
[2023-09-26] MEDS: HALOPERIDOL LACTATE 5 MG/ML IM ONE (16:29)
[2023-09-26 18:03] LABS: MCH 31.1 pg (25.7-33.7); MCHC 32.4 g/dl (32.0-36.0); MEAN CELL VOLUME 95.9 fl (80-96); MEAN PLT VOLUME 9.4 fl (7.5-11.1); PLATELET COUNT 231.4 10^3/uL (134-434); RBC 4.17 10^6/uL (3.60-5.2); RDW 15.4 % (11.6-15.6); WHITE BLOOD COUNT 11.7 10^3/uL (4.0-10.8)
[2023-09-26 18:08] LABS: INR 0.98 (0.83-1.09); PROTHROMBIN TIME (PATIENT) 11.2 SEC (9.7-13.0)
[2023-09-26] MEDS ORDERED: HEPARIN NA (PORCINE) 5,000 UNITS/ML 1ML VIAL IVPUSH PRN ×4 (18:08→19:25)
[2023-09-26 18:10] LABS: ACTIVATED PTT 31.7 SECONDS (25.2-36.5)
[2023-09-26 18:17] LABS: ALBUMIN 3.3 g/dl (3.4-5.0); BILIRUBIN,TOTAL 0.3 mg/dl (0.2-1); CREATININE 0.8 mg/dl (0.6-1.3); POTASSIUM 4.1 mmol/L (3.5-5.1); TOT PROT 6.4 g/dl (6.4-8.2)
[2023-09-26 18:23] LABS: PLATELET ESTIMATE ADEQUATE
[2023-09-26] MEDS ORDERED: HEPARIN NA (PORCINE) 5,000 UNITS/ML 1ML VIAL ONE (19:39)
[2023-09-26] MEDS ORDERED: HEPARIN INFUSION - 25,000 UNITS/500 ML INFUS.BAG IVPB ONE (19:39)
[2023-09-26] MEDS: HEPARIN NA (PORCINE) 5,000 UNITS/ML 1ML VIAL IVPUSH ONE (20:30)
[2023-09-26] MEDS: HEPARIN INFUSION - 25,000 UNITS/500 ML INFUS.BAG IVPB SCH (20:30)
[2023-09-27 04:01] LABS: HEMOGLOBIN 12.9 GM/dL (10.7-15.3); MCH 30.9 pg (25.7-33.7); MCHC 33.2 g/dl (32.0-36.0); MEAN CELL VOLUME 93.1 fl (80-96); MEAN PLT VOLUME 9.1 fl (7.5-11.1); PLATELET COUNT 259 10^3/uL (134-434); RBC 4.19 M/mm3 (3.60-5.2); RDW 15.8 % (11.6-15.6); WHITE BLOOD COUNT 10.7 K/mm3 (4.0-10.0)
[2023-09-27 04:13] LABS: INR 1.14 (0.83-1.09)
[2023-09-27 05:10] LABS: ACTIVATED PTT > 200.0 SECONDS (25.2-36.5)
[2023-09-27 05:28] LABS: ANISOCYTOSIS 1+; MACROCYTOSIS 0; OVALOCYTE 1+
[2023-09-27] MEDS: DIVALPROEX SODIUM 125 MG TABLET E.C. PO ONE (06:35)
[2023-09-27] MEDS: DIVALPROEX SODIUM 125 MG TABLET E.C. PO SCH ×2 (08:17→21:52)
[2023-09-27] MEDS: HEPARIN - 25,000 UNIT in SODIUM CHLORIDE 495 ML IV SCH (08:17)
[2023-09-27 08:38] LABS: BASO % 1.3 % (0-2.0); EOS % 1.1 % (0-4.5); HEMATOCRIT 38.6 % (32.4-45.2); HEMOGLOBIN 12.7 GM/dL (10.7-15.3); MEAN CELL VOLUME 94.2 fl (80-96); MEAN PLT VOLUME 9.1 fl (7.5-11.1); MONO % 8.4 % (3.8-10.2); NEUT % 70.2 % (42.8-82.8); PLATELET COUNT 235 10^3/uL (134-434); RDW 15.9 % (11.6-15.6); WHITE BLOOD COUNT 10.2 K/mm3 (4.0-10.0)
[2023-09-27] MEDS: LEVOTHYROXINE NA 75 MCG TABLET (FP) PO SCH (09:15)
[2023-09-27] MEDS: CALCIUM 500MG/VIT-D 200 UNITS COMBO TABLET (FP) PO SCH (09:15)
[2023-09-27] MEDS: CHOLECALCIFEROL (VIT D3) 400 UNIT (10 MCG) TABLET PO SCH (09:15)
[2023-09-27] MEDS: CYANOCOBALAMIN (VITAMIN B-12) 100 MCG TABLET PO SCH (09:16)
[2023-09-27] MEDS: POLYETHYLENE GLYCOL (HEALTHYLAX) 3350 17 GM PACKET PO SCH (09:17)
[2023-09-27 09:38] LABS: CALCIUM 8.5 mg/dL (8.5-10.1)
[2023-09-27 09:39] LABS: ALBUMIN 2.8 g/dl (3.4-5.0); BLOOD UREA NITROGEN 16.7 mg/dL (7-18); MAGNESIUM 2.2 mg/dL (1.8-2.4)
[2023-09-27 09:41] LABS: CREATININE 0.6 mg/dL (0.55-1.3)
[2023-09-27 09:43] LABS: BILIRUBIN,TOTAL 0.4 mg/dL (0.2-1); TOT PROT 6.9 g/dl (6.4-8.2)
[2023-09-27] MEDS: APIXABAN 5 MG TABLET PO SCH (10:15)
[2023-09-27] MEDS: SODIUM CHLORIDE 0.45% 1,000 ML IV SCH (12:01)
[2023-09-27] MEDS: LACTATED RINGERS SOLUTION 1,000 ML/1,000 ML INFUS.BAG IV SCH (20:30)
[2023-09-27] MEDS: MEMANTINE HCL 5 MG TABLET (UD) PO SCH (21:52)
[2023-09-27] MEDS ORDERED: PATIENT'S OWN MEDICATION (NON-FORMULARY) (Memantine Hcl [Namenda Xr] 14 MG Cap.Spr.24) PO SCH (22:00)
[2023-09-28] MEDS: HALOPERIDOL LACTATE 5 MG/ML IM ONE (00:03)
[2023-09-28] MEDS ORDERED: LACTATED RINGERS SOLUTION 1000 ML INFUS.BAG IV ONE (08:30)
[2023-09-28] MEDS: CYANOCOBALAMIN 1,000 MCG TABLET (FP) PO SCH (09:40)
[2023-09-28] MEDS: levoFLOXacin 750 MG TABLET PO SCH (09:44)
[2023-09-28] MEDS: LACTATED RINGERS SOLUTION 1,000 ML IV SCH (09:56)
[2023-09-28] MEDS ORDERED: hydrOXYzine HCL 100 MG/2 ML VIAL IM PRN (19:39)
[2023-09-28] MEDS: hydrOXYzine HCL 50 MG/ML VIAL IM PRN (21:40)
[2023-09-29] MEDS: SODIUM CHLORIDE 500 ML IV STA (00:30)
[2023-09-29] MEDS: ACETAMINOPHEN 1000 MG/100 ML BAG IVPB ONE (00:30)
[2023-09-29] MEDS: hydrOXYzine HCL 100 MG/2 ML VIAL IM ONE (07:18)
[2023-09-29] MEDS: LACTATED RINGERS SOLUTION 1,000 ML/1,000 ML INFUS.BAG NR STA (11:34)
[2023-09-29] MEDS: LACTATED RINGERS SOLUTION 1,000 ML/1,000 ML INFUS.BAG IV SCH (12:46)
[2023-09-29 12:48] LABS: HEMATOCRIT 34.5 % (32.4-45.2); HEMOGLOBIN 11.2 GM/dL (10.7-15.3); MCH 30.1 pg (25.7-33.7); MCHC 32.4 g/dl (32.0-36.0); MEAN CELL VOLUME 92.8 fl (80-96); PLATELET COUNT 292 10^3/uL (134-434); RBC 3.71 M/mm3 (3.60-5.2); RDW 15.8 % (11.6-15.6); WHITE BLOOD COUNT 23.8 K/mm3 (4.0-10.0)
[2023-09-29 13:08] LABS: POTASSIUM 3.6 mmol/L (3.5-5.1)
[2023-09-29 13:10] LABS: CALCIUM 7.7 mg/dL (8.5-10.1)
[2023-09-29 13:11] LABS: BLOOD UREA NITROGEN 13.4 mg/dL (7-18); MAGNESIUM 1.9 mg/dL (1.8-2.4)
[2023-09-29 13:13] LABS: ANISOCYTOSIS 1+; MACROCYTOSIS 0
[2023-09-29 13:14] LABS: CREATININE 0.8 mg/dL (0.55-1.3); PHOSPHOROUS 1.6 mg/dL (2.5-4.9)
[2023-09-29 13:15] LABS: BILIRUBIN,TOTAL 0.5 mg/dL (0.2-1); TOT PROT 5.5 g/dl (6.4-8.2)
[2023-09-29 13:16] LABS: ALBUMIN 2.1 g/dl (3.4-5.0)
[2023-09-29] MEDS: NAPH,MB-DB/K PH,MBDB POWDER PACKET PO ONE (16:24)
[2023-09-29] MEDS: ACETAMINOPHEN 1000 MG/100 ML BAG IVPB PRN (18:05)
[2023-09-29] MEDS: PIPERACILLIN/TAZOB 4.5 GM 4.5 GM in DEXTROSE 5%-WATER 100 ML IVPB SCH (18:08)
[2023-09-30 07:36] LABS: HEMATOCRIT 35.6 % (32.4-45.2); HEMOGLOBIN 11.7 GM/dL (10.7-15.3); MCH 30.4 pg (25.7-33.7); MCHC 32.9 g/dl (32.0-36.0); MEAN CELL VOLUME 92.6 fl (80-96); MEAN PLT VOLUME 8.8 fl (7.5-11.1); PLATELET COUNT 319 10^3/uL (134-434); RBC 3.85 M/mm3 (3.60-5.2); RDW 15.5 % (11.6-15.6); WHITE BLOOD COUNT 28.2 K/mm3 (4.0-10.0)
[2023-09-30 07:45] LABS: POTASSIUM 4.2 mmol/L (3.5-5.1)
[2023-09-30 07:54] LABS: CALCIUM 7.5 mg/dL (8.5-10.1)
[2023-09-30 07:55] LABS: ALBUMIN 1.8 g/dl (3.4-5.0); BLOOD UREA NITROGEN 9.1 mg/dL (7-18); MAGNESIUM 2.1 mg/dL (1.8-2.4)
[2023-09-30 07:58] LABS: CREATININE 0.6 mg/dL (0.55-1.3); PHOSPHOROUS 2.5 mg/dL (2.5-4.9)
[2023-09-30 07:59] LABS: BILIRUBIN,TOTAL 0.9 mg/dL (0.2-1); TOT PROT 5.6 g/dl (6.4-8.2)
[2023-09-30] MEDS: LACTATED RINGERS SOLUTION 1,000 ML/1,000 ML INFUS.BAG IV SCH (10:35)
[2023-09-30] MEDS: VANCOMYCIN/WATER FOR INJ (PEG) 1,000 MG/200 ML BAG IVPB ONE (10:55)
[2023-09-30] MEDS: LACTATED RINGERS SOLUTION 1,000 ML/1,000 ML INFUS.BAG IV STA (10:55)
[2023-09-30 12:56] LABS: EPI CELLS >36 /uL (0-25.1); HYALINE CASTS 3 /uL (0-3.1); URINE APPEARANCE CLEAR; URINE BACTERIA 10 /uL (0-1359); URINE BILIRUBIN NEGATIVE (NEGATIVE); URINE COLOR YELLOW; URINE GLUCOSE (UA) NEGATIVE (NEGATIVE); URINE KETONE TRACE (NEGATIVE); URINE LEUK ESTERASE NEGATIVE (NEGATIVE); URINE NITRITE NEGATIVE (NEGATIVE); URINE PROTEIN 2+ (NEGATIVE); URINE RBC 1321 /uL (0-23.9); URINE WBC 52 /uL (0-25.8)
[2023-09-30 13:09] LABS: DRVVT - 133.6 sec (0.0-47.0); HEXAGONAL PHASE PHOSPHOLIPID 6 sec (0-11); dRVVT MIX 69.2 sec (0.0-40.4)
[2023-09-30 13:56] LABS: LACTIC ACID 2.9 mmol/L (0.4-2.0)
[2023-09-30] MEDS: LACTATED RINGERS SOLUTION 1000 ML INFUS.BAG IV ONE (17:06)
[2023-09-30] MEDS: PIPERACILLIN/TAZOB 4.5 GM 4.5 GM in DEXTROSE 5%-WATER 100 ML IVPB SCH (17:06)
[2023-09-30] MEDS ORDERED: VANCOMYCIN/WATER FOR INJ (PEG) 1,000 MG/200 ML BAG IVPB SCH (23:00)
[2023-09-30] MEDS ORDERED: VANCOMYCIN 1,000 MG in DEXTROSE 5%-WATER - 250 ML IVPB SCH (23:00)
[2023-10-01 07:20] LABS: HEMATOCRIT 33.7 % (32.4-45.2); HEMOGLOBIN 11.1 GM/dL (10.7-15.3); MCH 30.5 pg (25.7-33.7); MCHC 32.8 g/dl (32.0-36.0); MEAN CELL VOLUME 93.1 fl (80-96); MEAN PLT VOLUME 8.9 fl (7.5-11.1); PLATELET COUNT 372 10^3/uL (134-434); RBC 3.62 M/mm3 (3.60-5.2); RDW 15.7 % (11.6-15.6)
[2023-10-01 07:38] LABS: POTASSIUM 3.5 mmol/L (3.5-5.1)
[2023-10-01 07:52] LABS: CALCIUM 7.2 mg/dL (8.5-10.1)
[2023-10-01 07:53] LABS: ALBUMIN 1.6 g/dl (3.4-5.0); BLOOD UREA NITROGEN 6.4 mg/dL (7-18)
[2023-10-01 07:56] LABS: CREATININE 0.6 mg/dL (0.55-1.3); PHOSPHOROUS 2.4 mg/dL (2.5-4.9)
[2023-10-01 07:57] LABS: BILIRUBIN,TOTAL 0.8 mg/dL (0.2-1); TOT PROT 5.1 g/dl (6.4-8.2)
[2023-10-01] MEDS: LACTATED RINGERS SOLUTION 1000 ML INFUS.BAG IV ONE ×2 (08:56→17:19)
[2023-10-01] MEDS: POTASSIUM PHOSPHATE 30 MM in SODIUM CHLORIDE 500 ML IVPB ONE ×2 (10:53→14:00)
[2023-10-01] MEDS: NAPH,MB-DB/K PH,MBDB POWDER PACKET PO ONE (10:56)
[2023-10-01] MEDS: VANCOMYCIN/WATER 1250 MG 1,250 MG/250 ML BAG IVPB SCH (11:36)
[2023-10-01] MEDS: PIPERACILLIN/TAZOB 4.5 GM 4.5 GM in DEXTROSE 5%-WATER 100 ML IVPB SCH (11:37)
[2023-10-01] MEDS: TAMSULOSIN HCL 0.4 MG CAP PO ONE (17:19)
[2023-10-02] MEDS: SODIUM CHLORIDE 1,000 ML IV STA (01:55)
[2023-10-02] MEDS: MIDODRINE HCL 5 MG TABLET PO SCH ×3 (05:01→17:05)
[2023-10-02] MEDS: MIDODRINE HCL 5 MG TABLET PO ONE (07:05)
[2023-10-02 07:22] LABS: HEMATOCRIT 31.7 % (32.4-45.2); HEMOGLOBIN 10.5 GM/dL (10.7-15.3); MCH 30.9 pg (25.7-33.7); MCHC 33.3 g/dl (32.0-36.0); MEAN CELL VOLUME 92.9 fl (80-96); MEAN PLT VOLUME 8.3 fl (7.5-11.1); PLATELET COUNT 460 10^3/uL (134-434); RBC 3.41 M/mm3 (3.60-5.2); WHITE BLOOD COUNT 17.2 K/mm3 (4.0-10.0)
[2023-10-02 07:40] LABS: POTASSIUM 3.7 mmol/L (3.5-5.1)
[2023-10-02 07:42] LABS: CALCIUM 7.1 mg/dL (8.5-10.1)
[2023-10-02 07:43] LABS: ALBUMIN 1.5 g/dl (3.4-5.0); BLOOD UREA NITROGEN 7.1 mg/dL (7-18)
[2023-10-02 07:46] LABS: CREATININE 0.5 mg/dL (0.55-1.3); PHOSPHOROUS 2.9 mg/dL (2.5-4.9)
[2023-10-02 07:47] LABS: BILIRUBIN,TOTAL 0.6 mg/dL (0.2-1); TOT PROT 5.2 g/dl (6.4-8.2)
[2023-10-02] MEDS: SODIUM CHLORIDE 500 ML IV STA (12:28)
[2023-10-02] MEDS: FUROSEMIDE 40 MG/4 ML INJECTABLE VIAL IVPUSH ONE (12:43)
[2023-10-02] MEDS: methylPREDNISolone NA SUCC 40 MG/1 ML VIAL IVPUSH SCH (12:54)
[2023-10-02] MEDS ORDERED: FUROSEMIDE INJECTION 100 MG in SODIUM CHLORIDE 40 ML IVPB SCH (13:00)
[2023-10-02] MEDS ORDERED: MIDODRINE HCL 5 MG TABLET PO SCH (14:00)
[2023-10-02] MEDS ORDERED: hydrOXYzine HCL 50 MG/ML VIAL IM PRN (15:01)
[2023-10-02] MEDS: ALBUTEROL SO4 2.5/IPRATROPIUM 0.5 INH SOL 3 ML VIAL.NEB. NEB SCH (15:05)
[2023-10-02] MEDS ORDERED: VASopressin 20 UNITS/ML VIAL IV ONE (15:06)
[2023-10-02] MEDS: FUROSEMIDE INJECTION 100 MG in SODIUM CHLORIDE 40 ML IVPB SCH (15:14)
[2023-10-02] MEDS: NOREPINEPHRINE BITARTRATE 4,000 MCG in DEXTROSE 5%-WATER - 496 ML IV SCH (15:14)
[2023-10-02] MEDS ORDERED: ALBUTEROL SO4 2.5/IPRATROPIUM 0.5 INH SOL 3 ML VIAL.NEB. NEB SCH (16:00)
[2023-10-02 16:10] LABS: ARTERIAL BLD GAS O2 SATURATION 96.7 % (95-98); ARTERIAL BLOOD GAS BASE EXCESS 1.2 mmol/L (-2-2); ARTERIAL BLOOD GAS PO2 86.6 mmHg (80-100); ARTERIAL BLOOD GAS pH 7.413 (7.350-7.450)
[2023-10-02 16:19] LABS: ALLENS TEST POSITIVE
[2023-10-02] MEDS: LACTATED RINGERS SOLUTION 1,000 ML/1,000 ML INFUS.BAG IV SCH (16:49)
[2023-10-02] MEDS: PIPERACILLIN/TAZOB 4.5 GM 4.5 GM in DEXTROSE 5%-WATER 100 ML IVPB SCH (17:05)
[2023-10-02] MEDS: VANCOMYCIN/WATER FOR INJ (PEG) 1,000 MG/200 ML BAG IVPB SCH (18:26)
[2023-10-02] MEDS: DIVALPROEX SODIUM 125 MG TABLET E.C. PO SCH (20:31)
[2023-10-02] MEDS: CHLORHEXIDINE GLUCONATE 4% CLEANSER FOR DECOLONIZATION TP SCH (21:19)
[2023-10-02] MEDS: CHOLECALCIFEROL (VIT D3) 400 UNIT (10 MCG) TABLET PO SCH (21:20)
[2023-10-02] MEDS: CALCIUM 500MG/VIT-D 200 UNITS COMBO TABLET (FP) PO SCH (21:20)
[2023-10-02] MEDS: ENOXAPARIN NA (PORCINE) 60 MG/0.6 ML DISP.SYRIN SQ SCH (21:20)
[2023-10-02] MEDS: CYANOCOBALAMIN 1,000 MCG TABLET (FP) PO SCH (21:20)
[2023-10-02] MEDS: MUPIROCIN 2% TOPICAL OINTMENT FOR DECOLONIZATION NS SCH (21:23)
[2023-10-02 21:36] LABS: PH,URINE 5.5 (5.0-8.0); URINE APPEARANCE CLEAR; URINE BILIRUBIN NEGATIVE (NEGATIVE); URINE COLOR YELLOW; URINE GLUCOSE (UA) NEGATIVE (NEGATIVE); URINE KETONE TRACE (NEGATIVE); URINE LEUK ESTERASE NEGATIVE (NEGATIVE); URINE NITRITE NEGATIVE (NEGATIVE); URINE PROTEIN NEGATIVE (NEGATIVE); URINE UROBILINOGEN 0.2 mg/dL (0.2-1.0)
[2023-10-02] MEDS ORDERED: APIXABAN 5 MG TABLET PO SCH (22:00)
[2023-10-02] MEDS: VASopressin 40 UNITS/100 ML BAG IV SCH (23:07)
[2023-10-03] MEDS: LEVOTHYROXINE NA 75 MCG TABLET (FP) PO SCH (07:17)
[2023-10-03] MEDS: methylPREDNISolone NA SUCC 40 MG/1 ML VIAL IVPUSH SCH (09:04)
[2023-10-03] MEDS: POLYETHYLENE GLYCOL (HEALTHYLAX) 3350 17 GM PACKET PO SCH (09:05)
[2023-10-03] MEDS: TAMSULOSIN HCL 0.4 MG CAP PO SCH (09:05)
[2023-10-03 10:14] LABS: HEMATOCRIT 33.2 % (32.4-45.2); HEMOGLOBIN 10.7 GM/dL (10.7-15.3); MCHC 32.2 g/dl (32.0-36.0); MEAN PLT VOLUME 8.7 fl (7.5-11.1); PLATELET COUNT 564 10^3/uL (134-434); RBC 3.58 M/mm3 (3.60-5.2); RDW 15.3 % (11.6-15.6); WHITE BLOOD COUNT 20.6 K/mm3 (4.0-10.0)
[2023-10-03] MEDS ORDERED: NOREPINEPHRINE 0.9 % NACL 8 MG/250 ML BAG IVPB SCH (20:15)
[2023-10-03] MEDS: NOREPINEPHRINE BITARTRATE 4,000 MCG in DEXTROSE 5%-WATER - 496 ML IV SCH (20:50)
[2023-10-04 07:22] LABS: HEMATOCRIT 31.2 % (32.4-45.2); HEMOGLOBIN 10.3 GM/dL (10.7-15.3); MCH 30.8 pg (25.7-33.7); MCHC 33.1 g/dl (32.0-36.0); MEAN CELL VOLUME 92.9 fl (80-96); MEAN PLT VOLUME 8.2 fl (7.5-11.1); PLATELET COUNT 649 10^3/uL (134-434); RBC 3.36 M/mm3 (3.60-5.2); RDW 15.6 % (11.6-15.6); WHITE BLOOD COUNT 21.8 K/mm3 (4.0-10.0)
[2023-10-04 07:40] LABS: POTASSIUM 3.5 mmol/L (3.5-5.1)
[2023-10-04 07:44] LABS: CALCIUM 7.5 mg/dL (8.5-10.1)
[2023-10-04 07:45] LABS: ALBUMIN 1.7 g/dl (3.4-5.0); BLOOD UREA NITROGEN 5.6 mg/dL (7-18); MAGNESIUM 2.2 mg/dL (1.8-2.4)
[2023-10-04 07:48] LABS: CREATININE 0.6 mg/dL (0.55-1.3); PHOSPHOROUS 1.3 mg/dL (2.5-4.9)
[2023-10-04 07:49] LABS: BILIRUBIN,TOTAL 0.4 mg/dL (0.2-1)
[2023-10-04 07:50] LABS: TOT PROT 5.5 g/dl (6.4-8.2)
[2023-10-04 09:00] LABS: ANISOCYTOSIS 0; MACROCYTOSIS 0
[2023-10-04] MEDS: NAPH,MB-DB/K PH,MBDB POWDER PACKET PO ONE (11:40)
[2023-10-05 07:53] LABS: POTASSIUM 3.9 mmol/L (3.5-5.1)
[2023-10-05 07:56] LABS: CALCIUM 7.5 mg/dL (8.5-10.1)
[2023-10-05 07:57] LABS: ALBUMIN 1.6 g/dl (3.4-5.0); BLOOD UREA NITROGEN 8.4 mg/dL (7-18); MAGNESIUM 2.1 mg/dL (1.8-2.4)
[2023-10-05 08:00] LABS: CREATININE 0.6 mg/dL (0.55-1.3); PHOSPHOROUS 2.3 mg/dL (2.5-4.9)
[2023-10-05 08:01] LABS: BILIRUBIN,TOTAL 0.3 mg/dL (0.2-1); TOT PROT 5.1 g/dl (6.4-8.2)
[2023-10-05 08:06] LABS: HEMATOCRIT 29.9 % (32.4-45.2); HEMOGLOBIN 9.9 GM/dL (10.7-15.3); MCH 30.6 pg (25.7-33.7); MEAN CELL VOLUME 92.8 fl (80-96); MEAN PLT VOLUME 8.3 fl (7.5-11.1); PLATELET COUNT 589 10^3/uL (134-434); RBC 3.23 M/mm3 (3.60-5.2); RDW 15.9 % (11.6-15.6); WHITE BLOOD COUNT 16.9 K/mm3 (4.0-10.0)
[2023-10-05 09:31] LABS: ANISOCYTOSIS 1+; MACROCYTOSIS 0
[2023-10-05] MEDS: ENOXAPARIN NA (PORCINE) 30 MG/0.3 ML DISP.SYRIN SQ SCH (10:03)
[2023-10-05] MEDS ORDERED: guaiFENesin/CODEINE 10 ML UNIT-DOSE CUPS PO PRN (20:51)
[2023-10-06 09:54] LABS: HEMATOCRIT 32.8 % (32.4-45.2); HEMOGLOBIN 10.8 GM/dL (10.7-15.3); MCH 30.7 pg (25.7-33.7); MCHC 32.9 g/dl (32.0-36.0); MEAN CELL VOLUME 93.3 fl (80-96); MEAN PLT VOLUME 8.3 fl (7.5-11.1); PLATELET COUNT 679 10^3/uL (134-434); RBC 3.51 M/mm3 (3.60-5.2); RDW 15.5 % (11.6-15.6); WHITE BLOOD COUNT 20.3 K/mm3 (4.0-10.0)
[2023-10-06 10:15] LABS: POTASSIUM 3.9 mmol/L (3.5-5.1)
[2023-10-06 10:19] LABS: ALBUMIN 1.9 g/dl (3.4-5.0); BLOOD UREA NITROGEN 10.3 mg/dL (7-18); CALCIUM 8.3 mg/dL (8.5-10.1); MAGNESIUM 2.3 mg/dL (1.8-2.4)
[2023-10-06 10:24] LABS: BILIRUBIN,TOTAL 0.5 mg/dL (0.2-1); TOT PROT 5.8 g/dl (6.4-8.2)
[2023-10-06 10:42] LABS: CREATININE 0.5 mg/dL (0.55-1.3)
[2023-10-06 10:46] LABS: ANISOCYTOSIS 1+; MACROCYTOSIS 0
[2023-10-06 15:05] VITALS: BMI 30.9
[2023-10-06] MEDS ORDERED: guaiFENesin/CODEINE 10 ML UNIT-DOSE CUPS PO PRN (16:24)
[2023-10-06] MEDS: PIPERACILLIN/TAZOB 4.5 GM 4.5 GM in DEXTROSE 5%-WATER 100 ML IVPB SCH (17:28)
[2023-10-06] MEDS: MIDODRINE HCL 5 MG TABLET PO SCH (17:42)
[2023-10-06] MEDS: ALBUTEROL SO4 2.5/IPRATROPIUM 0.5 INH SOL 3 ML VIAL.NEB. NEB SCH (20:07)
[2023-10-06] MEDS: CYANOCOBALAMIN 1,000 MCG TABLET (FP) PO SCH (21:07)
[2023-10-06] MEDS: DIVALPROEX SODIUM 125 MG TABLET E.C. PO SCH (21:08)
[2023-10-06] MEDS: CHOLECALCIFEROL (VIT D3) 400 UNIT (10 MCG) TABLET PO SCH (21:08)
[2023-10-06] MEDS: ENOXAPARIN NA (PORCINE) 30 MG/0.3 ML DISP.SYRIN SQ SCH (21:08)
[2023-10-06] MEDS: CALCIUM 500MG/VIT-D 200 UNITS COMBO TABLET (FP) PO SCH (21:09)
[2023-10-07] MEDS: LEVOTHYROXINE NA 75 MCG TABLET (FP) PO SCH (06:02)
[2023-10-07 08:51] LABS: HEMATOCRIT 32.7 % (32.4-45.2); HEMOGLOBIN 10.8 GM/dL (10.7-15.3); MCH 30.6 pg (25.7-33.7); MCHC 32.9 g/dl (32.0-36.0); MEAN PLT VOLUME 8.1 fl (7.5-11.1); PLATELET COUNT 637 10^3/uL (134-434); RBC 3.52 M/mm3 (3.60-5.2); RDW 16.2 % (11.6-15.6); WHITE BLOOD COUNT 17.1 K/mm3 (4.0-10.0)
[2023-10-07 08:58] LABS: POTASSIUM 4.3 mmol/L (3.5-5.1)
[2023-10-07 09:13] LABS: ALBUMIN 1.7 g/dl (3.4-5.0); BLOOD UREA NITROGEN 10.5 mg/dL (7-18); CALCIUM 7.8 mg/dL (8.5-10.1)
[2023-10-07 09:14] LABS: MAGNESIUM 2.3 mg/dL (1.8-2.4)
[2023-10-07 09:16] LABS: BILIRUBIN,TOTAL 0.4 mg/dL (0.2-1); CREATININE 0.7 mg/dL (0.55-1.3); TOT PROT 5.1 g/dl (6.4-8.2)
[2023-10-07] MEDS: TAMSULOSIN HCL 0.4 MG CAP PO SCH (09:23)
[2023-10-07] MEDS ORDERED: ALBUTEROL SO4 0.083% IH SOL 2.5 MG/3 ML VIAL.NEB. NEB PRN (10:32)
[2023-10-07] MEDS: POLYETHYLENE GLYCOL (HEALTHYLAX) 3350 17 GM PACKET PO SCH (10:54)
[2023-10-07 10:56] LABS: ANISOCYTOSIS 1+; MACROCYTOSIS 0
[2023-10-07] MEDS: ACETYLCYSTEINE 20% 200MG/ML 4 ML VIAL *FOR ORAL / INH USE ONLY NEB SCH (13:20)
[2023-10-07] MEDS: ALBUTEROL SO4 0.083% IH SOL 2.5 MG/3 ML VIAL.NEB. NEB SCH (13:21)
[2023-10-07] MEDS: ENOXAPARIN NA (PORCINE) 60 MG/0.6 ML DISP.SYRIN SQ SCH (21:25)
[2023-10-08 09:18] LABS: HEMATOCRIT 31.8 % (32.4-45.2); HEMOGLOBIN 10.6 GM/dL (10.7-15.3); MCH 30.6 pg (25.7-33.7); MCHC 33.3 g/dl (32.0-36.0); MEAN CELL VOLUME 91.7 fl (80-96); PLATELET COUNT 652 10^3/uL (134-434); RBC 3.46 M/mm3 (3.60-5.2); RDW 16.3 % (11.6-15.6); WHITE BLOOD COUNT 16.5 K/mm3 (4.0-10.0)
[2023-10-08 09:44] LABS: POTASSIUM 4.4 mmol/L (3.5-5.1)
[2023-10-08 09:57] LABS: ALBUMIN 1.8 g/dl (3.4-5.0); BLOOD UREA NITROGEN 7.3 mg/dL (7-18)
[2023-10-08 10:00] LABS: CREATININE 0.6 mg/dL (0.55-1.3)
[2023-10-08 10:02] LABS: BILIRUBIN,TOTAL 0.3 mg/dL (0.2-1); TOT PROT 5.3 g/dl (6.4-8.2)
[2023-10-08] MEDS: VALPROATE SODIUM 250 MG/5 ML UNIT DOSE CUP PO SCH (21:58)
[2023-10-08] MEDS: APIXABAN 5 MG TABLET PO SCH (21:58)
[2023-10-08] MEDS ORDERED: APIXABAN 5 MG TABLET PO SCH (22:00)
[2023-10-09 04:23] VITALS: RESP 18
[2023-10-09 08:38] LABS: HEMATOCRIT 34.2 % (32.4-45.2); HEMOGLOBIN 11.2 GM/dL (10.7-15.3); MCH 30.8 pg (25.7-33.7); MCHC 32.8 g/dl (32.0-36.0); MEAN CELL VOLUME 93.8 fl (80-96); MEAN PLT VOLUME 8.1 fl (7.5-11.1); PLATELET COUNT 640 10^3/uL (134-434); RBC 3.65 M/mm3 (3.60-5.2); RDW 16.4 % (11.6-15.6); WHITE BLOOD COUNT 15.3 K/mm3 (4.0-10.0)
[2023-10-09 08:55] LABS: POTASSIUM 4.7 mmol/L (3.5-5.1)
[2023-10-09 08:58] LABS: CALCIUM 8.5 mg/dL (8.5-10.1)
[2023-10-09 08:59] LABS: BLOOD UREA NITROGEN 6.6 mg/dL (7-18); MAGNESIUM 2.6 mg/dL (1.8-2.4)
[2023-10-09 09:03] LABS: BILIRUBIN,TOTAL 0.5 mg/dL (0.2-1); CREATININE 0.8 mg/dL (0.55-1.3); PHOSPHOROUS 3.5 mg/dL (2.5-4.9); TOT PROT 5.6 g/dl (6.4-8.2)
[2023-10-09 10:03] LABS: ANISOCYTOSIS 1+; MACROCYTOSIS 0
[2023-10-10 09:36] LABS: HEMOGLOBIN 10.8 GM/dL (10.7-15.3); MCH 30.3 pg (25.7-33.7); MCHC 32.6 g/dl (32.0-36.0); MEAN PLT VOLUME 7.8 fl (7.5-11.1); PLATELET COUNT 716 10^3/uL (134-434); RBC 3.55 M/mm3 (3.60-5.2); RDW 16.8 % (11.6-15.6); WHITE BLOOD COUNT 14.2 K/mm3 (4.0-10.0)
[2023-10-10 10:06] LABS: POTASSIUM 5.1 mmol/L (3.5-5.1)
[2023-10-10 10:12] LABS: ALBUMIN 2.1 g/dl (3.4-5.0); CALCIUM 8.3 mg/dL (8.5-10.1)
[2023-10-10 10:16] LABS: CREATININE 0.9 mg/dL (0.55-1.3)
[2023-10-10 10:17] LABS: BILIRUBIN,TOTAL 0.4 mg/dL (0.2-1)
[2023-10-11 01:25] VITALS: BP 108/72; PULSE 86; TEMP 98.2
== END 2023-10-11 01:35 | DRG 299 ==
LOC: FER 15:19 → J4W 09-27 02:40 → JICU 10-02 14:16 → J6S 10-06 14:43
PROVIDERS: ADMIT Internal Medicine; ATTEND Internal Medicine
PROC: 05HB33Z Insertion of Infusion Device into Right Basilic Vein, Percutaneous Approach (ICD-10-PCS; principal; 2023-10-02)
PROC: B54MZZA Ultrasonography of Right Upper Extremity Veins, Guidance (ICD-10-PCS; 2023-10-02)
DX: I82.402 Acute embolism and thrombosis of unspecified deep veins of left lower extremity (principal); A41.9 Sepsis, unspecified organism; J18.9 Pneumonia, unspecified organism; R65.21 Severe sepsis with septic shock; J69.0 Pneumonitis due to inhalation of food and vomit; E87.0 Hyperosmolality and hypernatremia; E87.20 Acidosis, unspecified; J90 Pleural effusion, not elsewhere classified; Q90.9 Down syndrome, unspecified; E03.9 Hypothyroidism, unspecified; N63.0 Unspecified lump in unspecified breast; E86.0 Dehydration; G40.909 Epilepsy, unspecified, not intractable, without status epilepticus; R33.8 Other retention of urine; E83.39 Other disorders of phosphorus metabolism; F39 Unspecified mood [affective] disorder
CPT/HCPCS: 0241U-QW; 36415; 36600; 71045-TC-FY; 71275-TC; 73590-TC-LT-FY; 73630-TC-LT; 76604-TC; 80053; 81003; 82803; 82962; 83605; 83735; 84100; 84484; 85025; 85027; 85610; 85613; 85651; 85730; 85732; 86140; 87040; 87081; 87086; 87899; 93005; 93306-TC; 93970-TC; 94640; 97116-GP; 97161-GP; 99291; G0480; J0131; J1644; Q9967

== ENCOUNTER 2023-10-11 02:57 | Observation (INO) | payer OTHER ==
[2023-10-11 05:23] VITALS: BMI 30.3
[2023-10-11] MEDS: LEVOTHYROXINE NA 75 MCG TABLET (FP) PO SCH (07:06)
[2023-10-11] MEDS: MEMANTINE HCL 5 MG TABLET (UD) PO SCH (10:23)
[2023-10-11] MEDS: CYANOCOBALAMIN 1,000 MCG TABLET (FP) PO SCH (10:23)
[2023-10-11] MEDS: APIXABAN 5 MG TABLET PO SCH (10:23)
[2023-10-11] MEDS: AMOX TR/POT CLAV 875MG/125MG TABLETS (FP) PO SCH (10:23)
[2023-10-11] MEDS: POLYETHYLENE GLYCOL (HEALTHYLAX) 3350 17 GM PACKET PO SCH (10:23)
[2023-10-11] MEDS: CALCIUM 500MG/VIT-D 200 UNITS COMBO TABLET (FP) PO SCH (10:24)
[2023-10-11] MEDS: DIVALPROEX SODIUM 125 MG TABLET E.C. PO SCH (10:53)
[2023-10-12 10:07] LABS: POTASSIUM 5.1 mmol/L (3.5-5.1)
[2023-10-12 10:09] LABS: CALCIUM 8.3 mg/dL (8.5-10.1)
[2023-10-12 10:10] LABS: ALBUMIN 2.4 g/dl (3.4-5.0); BLOOD UREA NITROGEN 8.5 mg/dL (7-18)
[2023-10-12 10:13] LABS: CREATININE 0.7 mg/dL (0.55-1.3)
[2023-10-12 10:14] LABS: TOT PROT 6.9 g/dl (6.4-8.2)
[2023-10-12 10:15] LABS: BILIRUBIN,TOTAL 0.3 mg/dL (0.2-1)
[2023-10-12 11:29] LABS: HEMATOCRIT 39.6 % (32.4-45.2); HEMOGLOBIN 12.6 GM/dL (10.7-15.3); MCH 30.4 pg (25.7-33.7); MCHC 31.8 g/dl (32.0-36.0); MEAN CELL VOLUME 95.6 fl (80-96); MEAN PLT VOLUME 7.6 fl (7.5-11.1); PLATELET COUNT 728 10^3/uL (134-434); RBC 4.15 M/mm3 (3.60-5.2); RDW 16.6 % (11.6-15.6); WHITE BLOOD COUNT 13.1 K/mm3 (4.0-10.0)
[2023-10-12 11:57] LABS: ANISOCYTOSIS 0; HELMET CELLS 0; HOWELL-JOLLY BODIES 0; MACROCYTOSIS 0; OVALOCYTE 0; ROULEAU 0; SICKELED CELLS 0; TARGET CELLS 0; TEAR DROP CELLS 0; TOXIC GRANULATION 0
[2023-10-13 08:59] LABS: HEMATOCRIT 35.3 % (32.4-45.2); HEMOGLOBIN 11.8 GM/dL (10.7-15.3); MCH 30.8 pg (25.7-33.7); MCHC 33.5 g/dl (32.0-36.0); MEAN CELL VOLUME 91.9 fl (80-96); MEAN PLT VOLUME 7.6 fl (7.5-11.1); PLATELET COUNT 703 10^3/uL (134-434); RBC 3.84 M/mm3 (3.60-5.2); WHITE BLOOD COUNT 8.2 K/mm3 (4.0-10.0)
[2023-10-13 10:56] LABS: ANISOCYTOSIS 0; MACROCYTOSIS 0
[2023-10-13] MEDS ORDERED: ACETAMINOPHEN 325 MG TABLET (FP) PO PRN (18:03)
[2023-10-14 09:40] LABS: POTASSIUM 4.4 mmol/L (3.5-5.1)
[2023-10-14 09:45] LABS: CALCIUM 8.7 mg/dL (8.5-10.1)
[2023-10-14 09:46] LABS: BLOOD UREA NITROGEN 13.8 mg/dL (7-18)
[2023-10-14 09:48] LABS: CREATININE 0.8 mg/dL (0.55-1.3)
[2023-10-15 02:56] VITALS: RESP 18
[2023-10-15 08:51] VITALS: BP 108/66; PULSE 89; TEMP 98.7
[2023-10-15] MEDS: APIXABAN 5 MG TABLET PO SCH (09:06)
== END 2023-10-15 12:40 ==
LOC: JER 02:57 → JERBED 03:08 → J6S 04:09
PROVIDERS: ADMIT Internal Medicine; ATTEND Internal Medicine
DX: Z02.2 Encounter for examination for admission to residential institution (principal); Q90.9 Down syndrome, unspecified; E03.9 Hypothyroidism, unspecified; R56.9 Unspecified convulsions; Z86.718 Personal history of other venous thrombosis and embolism
CPT/HCPCS: 36415; 70450-TC; 80048; 80053; 85025; 99285-25; G0378